=== PATIENT | male | born 1935 | race Caucasian/White ===

== ENCOUNTER 2016-10-28 12:18 | Observation (INO) | payer MEDICARE, BC ==
[2016-10-28] MEDS ORDERED: Sodium Chloride 0.9% 10 ML Syringe FLUSH PRN ×2 (12:41→17:54)
--- NOTE | 2016-10-28 14:48 | CT ---
Head wo Cont INDICATION: Syncope, evaluate shunt, rule out bleed. COMPARISON: CT 10/13/2014. FINDINGS: Mild generalized cerebral and cerebellar volume loss. Ventricular shunt via a right frontal prasad hole with tip that crosses midline and terminates in the frontal horn of the left lateral ventr icle. Focal encephalomalacia in the right frontal lobe. Slight prominence of the ventricular system i s unchanged since prior CT. No acute intracranial hemorrhage. Exam otherwise unremarkable. IMPRESSION: Stable exam. No acute findings.
--- NOTE | 2016-10-28 14:50 | CR ---
Chest 2V INDICATION: evaluate shunt, r/o PNE FINDINGS: Comparison 04/18/2015. Shunt tubing projected over the right neck, chest, and upper abdomen. No evidence for discontinuity. Mild hyperinflation. Slight blunting of the costophrenic angles. Exam otherwise negative.
--- NOTE | 2016-10-28 14:51 | CR ---
Abdomen 1V Flat INDICATION: evaluate shunt FINDINGS: Shunt tubing projected over the right side of the abdomen, coiled in the pelvis. Nonobstruc nimco bowel gas pattern. Left total hip arthroplasty. Degenerative changes lumbar spine.
[2016-10-28] MEDS ORDERED: Insulin Regular, Human 100 Units/ML 10 ML Vial SUBCUT ONE (15:59)
--- NOTE | 2016-10-28 16:25 | EDM.PDOC ---
ED HPI GENERAL MEDICAL PROBLEM - General Chief Complaint: Diabetic Complaint Stated Complaint: FALL IN BATHROOM Time Seen by Provider: 10/28/16 14:00 Source of Information: Reports: Patient, Family History Limitations: Reports: Altered Mental Status, Other (chronic dementia, unchanged per spouse) - History of Present Illness INITIAL COMMENTS - FREE TEXT/NARRATIVE: Patient had fall when getting out of shower. It was unwitnessed but heard fall and immediately went to see him. She states he was a bit slow to respond but quickly returned to his normal cognition and function. No seizure activity , no focal neurological deficit, no loss of continence, no lip/mouth bitting. Patient reports no prodrome, no headache, no palpitations, no syncope. He had been in his normal state of health, except for running blood sugars in the 300s. He is currently without complaint. Onset: Today Duration: Minutes: (<1min) Associated Symptoms: Reports: Syncope. Denies: Confusion, Chest Pain, Cough, Diaphoresis, Fever/Chills, Headaches, Loss of Appetite, Malaise, Nausea/Vomiting , Rash, Seizure, Shortness of Breath, Weakness - Related Data Allergies Allergy/AdvReac Type Severity Reaction Status Date / Time No Known Allergies Allergy Verified 10/28/16 14:32 Home Meds: Home Meds Levothyroxine Sodium 200 mcg PO DAILY 01/08/13 [History] Metoprolol Tartrate [Lopressor] 50 mg PO DAILY 01/08/13 [History] Aspirin [Silver Chewable Aspirin] 81 mg PO DAILY 05/31/14 [History] Insulin Aspart [NovoLOG] 6 unit SQ ASDIRECTED 05/31/14 [History] Insulin Glarg,Human.Rec.Analog [Lantus Solostar] 15 units SQ QAM 05/31/14 [ History] Acetaminophen [Tylenol] 2 tab PO Q4H PRN 10/13/14 [History] Acetaminophen/HYDROcodone [[place] 325-5 MG] 1 tab PO Q4H PRN 10/13/14 [History] Cholecalciferol (Vitamin D3) [Vitamin D3] 2,000 mg PO DAILY 10/13/14 [History] Simvastatin [Zocor] 20 mg PO DAILY 10/13/14 [History] Sodium Chloride 2,000 mg PO BID 10/13/14 [History] amLODIPine [Norvasc] 10 mg PO DAILY 10/13/14 [History] Past Medical History HEENT History: Reports: Impaired Vision, Other (See Below) Other HEENT History: bifocal lense Gastrointestinal History: Reports: GERD Other Musculoskeletal History: multiple dislocations since surg. latest was Other Neuro History: recent head bleed with surgical intervention and shunt Other Psychiatric History: dementia Endocrine/Metabolic History: Reports: Diabetes, Type II Other Endocrine/Metabolic History: Hx of low NA in past. Other Dermatologic History: dermatitis on legs - Infectious Disease History Infectious Disease History: Reports: Mumps - Past Surgical History GI Surgical History: Reports: Appendectomy Musculoskeletal Surgical History: Reports: Joint Replacement Social & Family History - Tobacco Use Smoking Status *Q: Current Every Day Smoker Years of Tobacco use: 60 Packs/Tins Daily: 1 Used Tobacco, but Quit: No Second Hand Smoke Exposure: Yes - Caffeine Use Caffeine Use: Reports: Coffee Other Caffeine Use: 2-3 pots a day - decaf - Alcohol Use Days Per Week of Alcohol Use: 1 Number of Drinks Per Day: 1 Total Drinks Per Week: 1 - Recreational Drug Use Recreational Drug Use: No ED ROS GENERAL - Review of Systems Review Of Systems: See Below Constitutional: Reports: No Symptoms HEENT: Reports: No Symptoms Respiratory: Reports: No Symptoms Cardiovascular: Reports: No Symptoms Endocrine: Reports: No Symptoms GI/Abdominal: Reports: No Symptoms : Reports: No Symptoms Musculoskeletal: Reports: No Symptoms Skin: Reports: No Symptoms Neurological: Reports: No Symptoms Psychiatric: Reports: No Symptoms Hematologic/Lymphatic: Reports: No Symptoms Immunologic: Reports: No Symptoms ED EXAM GENERAL NO PERIP PULSE - Physical Exam Exam: See Below Exam Limited By: No Limitations General Appearance: Alert, WD/WN, No Apparent Distress. No: Anxious, Lethargic , Obtunded Eye Exam: Bilateral Eye: EOMI, PERRL Ears: Normal External Exam, Normal Canal, Hearing Grossly Normal, Normal TMs Nose: Normal Inspection, Normal Mucosa, No Blood Throat/Mouth: Normal Inspection, Normal Lips, Normal Gums, Normal Oropharynx, Normal Voice, No Airway Compromise Head: Atraumatic, Normocephalic, Other (BILL CUTTER shunt reservoir depresses easily and refills in less than a minute. ) Neck: Normal Inspection, Supple, Non-Tender, Full Range of Motion Respiratory/Chest: No Respiratory Distress, Lungs Clear, Normal Breath Sounds, No Accessory Muscle Use, Chest Non-Tender Cardiovascular: Normal Peripheral Pulses, Regular Rate, Rhythm, No Edema, No Gallop, No JVD, No Murmur, No Rub, Systolic Murmur. No: Bradycardia, Tachycardia, Irregularly Irregular GI/Abdominal: Normal Bowel Sounds, Soft, Non-Tender, No Organomegaly, No Distention, No Abnormal Bruit, No Mass, Pelvis Stable Back Exam: Full Range of Motion. No: Decreased Range of Motion, Muscle Spasm, Paraspinal Tenderness (superficial abrasion/contusion over L scapula), Vertebral Tenderness Extremities: Normal Inspection, Normal Range of Motion (able to reach L arm behind torso, normal scapular motion), Non-Tender, No Pedal Edema, Normal Capillary Refill. No: Pedal Edema, Slow Capillary Refill, Joint Swelling, Arm Pain, Mojgan's Sign, Leg Pain, Mottled, Pallor, Redness Neurological: Alert, Oriented, CN II-XII Intact, Normal Reflexes, No Motor/ Sensory Deficits, Memory Loss Recent Events, Other (FNF, HKS, rapid alternating mvt intact, propioception intact). No: Normal Cognition, Inattentive, Confused , Disoriented, Slow to Respond Psychiatric: Normal Affect, Normal Mood Skin Exam: Warm, Dry, Intact, Normal Color, No Rash Lymphatic: No Adenopathy EKG INTERPRETATION EKG Interpretation Comments: NSR w/ 1st deg AVB, nl QTc, normal axis, poor wave in ant-sept distribution ? QS complex in V1-2, biphasic T wave laterally. Course - Vital Signs Last Recorded V/S: Last Vital Signs Temp 36.4 C 10/29/16 11:46 Pulse 56 L 10/29/16 11:46 Resp 16 10/29/16 11:46 BP 132/57 L 10/29/16 11:46 Pulse Ox 92 L 10/29/16 11:46 - Orders/Labs/Meds Labs: Laboratory Tests 10/28/16 10/28/16 10/28/16 Range/Units 13:02 13:07 13:07 WBC 10.5 (4.5-11.0) K/uL RBC 4.50 (4.30-5.90) M/uL Hgb 12.8 (12.0-15.0) g/dL Hct 38.5 L (40.0-54.0) % MCV 86 (80-98) fL MCH 28 (27-31) pg MCHC 33 (32-36) % Plt Count 253 (150-400) K/uL Neut % (Auto) 51 (36-66) % Lymph % (Auto) 10 L (24-44) % Traill % (Auto) 32 H (2-6) % Eos % (Auto) 5 H (2-4) % Baso % (Auto) 3 H (0-1) % Sodium 131 L (140-148) mmol/L Potassium 4.2 (3.6-5.2) mmol/L Chloride 98 L (100-108) mmol/L Carbon Dioxide 28 (21-32) mmol/L Anion Gap 9.2 (5.0-14.0) mmol/L BUN 20 H (7-18) mg/dL Creatinine 1.3 (0.8-1.3) mg/dL Est Cr Clr Drug Dosing TNP Estimated GFR (MDRD) 53 L (>60) Glucose 356 H (74-106) mg/dL Calcium 8.3 L (8.5-10.1) mg/dL Troponin I < 0.017 (0.000-0.056) ng/mL Urine Color Urine Appearance Urine pH (4.5-8.0) Ur Specific [place] (1.008-1.030) Urine Protein (NEGATIVE) mg/dL Urine Glucose (UA) (NEGATIVE) mg/dL Urine Ketones (NEGATIVE) mg/dL Urine Occult Blood (NEGATIVE) Urine Nitrite (NEGAITVE) Urine Bilirubin (NEGATIVE) Urine Urobilinogen (NORMAL) mg/dL Ur Leukocyte Esterase (NEGATIVE) Urine RBC (0-5) Urine WBC (0-5) Ur Epithelial Cells Amorphous Sediment Urine Bacteria Urine Mucus 10/28/16 10/28/16 Range/Units 14:58 15:07 WBC (4.5-11.0) K/uL RBC (4.30-5.90) M/uL Hgb (12.0-15.0) g/dL Hct (40.0-54.0) % MCV (80-98) fL MCH (27-31) pg MCHC (32-36) % Plt Count (150-400) K/uL Neut % (Auto) (36-66) % Lymph % (Auto) (24-44) % [place]ill % (Auto) (2-6) % Eos % (Auto) (2-4) % Baso % (Auto) (0-1) % Sodium (140-148) mmol/L Potassium (3.6-5.2) mmol/L Chloride (100-108) mmol/L Carbon Dioxide (21-32) mmol/L Anion Gap (5.0-14.0) mmol/L BUN (7-18) mg/dL Creatinine (0.8-1.3) mg/dL Est Cr Clr Drug Dosing Estimated GFR (MDRD) (>60) Glucose (74-106) mg/dL Calcium (8.5-10.1) mg/dL Troponin I < 0.017 (0.000-0.056) ng/mL Urine Color Yellow Urine Appearance Slightly cloudy Urine pH 6.0 (4.5-8.0) Ur Specific [place] 1.010 (1.008-1.030) Urine Protein Trace (NEGATIVE) mg/dL Urine Glucose (UA) 1000 H (NEGATIVE) mg/dL Urine Ketones Negative (NEGATIVE) mg/dL Urine Occult Blood Negative (NEGATIVE) Urine Nitrite Negative (NEGAITVE) Urine Bilirubin Negative (NEGATIVE) Urine Urobilinogen Normal (NORMAL) mg/dL Ur Leukocyte Esterase Negative (NEGATIVE) Urine RBC 0-5 (0-5) Urine WBC 0-5 (0-5) Ur Epithelial Cells Rare Amorphous Sediment Not seen Urine Bacteria Rare Urine Mucus Few Meds: Medications Discontinued Medications Generic Name Dose Route Start Last Admin Trade Name Freq PRN Reason Stop Dose Admin Acetaminophen 650 mg 10/28/16 17:54 Tylenol PO Q4H PRN Pain (mild 1-3) Hydrocodone Bitart/Acetaminophen 1 tab 10/28/16 17:54 [place] 325-5 Mg PO Q4H PRN Pain Amlodipine Besylate 10 mg 10/29/16 09:00 10/29/16 09:09 Norvasc PO 10 mg DAILY EMILIANA Administration Aspirin 81 mg 10/29/16 09:00 10/29/16 09:12 Aspirin PO 81 mg DAILY EMILIANA Administration Dextrose 15 gm 10/28/16 17:54 Glutose 15 PO ONETIME PRN Hypoglycemia Dextrose/Water 50 ml 10/28/16 17:54 Dextrose 50% In Water IV ONETIME PRN Hypoglycemia Docusate Sodium 100 mg 10/28/16 17:54 Colace PO BID PRN Constipation Enoxaparin Sodium 40 mg 10/28/16 17:54 10/29/16 09:10 Lovenox SUBCUT 40 mg DAILY EMILIANA Administration Lactated Ringer's 1,000 mls @ 150 mls/hr 10/28/16 16:00 10/28/16 17:16 Ringers, Lactated IV 150 mls/hr ASDIRECTED EMILIANA Administration Sodium Chloride 1,000 mls @ 125 mls/hr 10/28/16 17:54 10/29/16 06:14 Normal Saline IV 125 mls/hr ASDIRECTED EMILIANA Administration Insulin Aspart 0 unit 10/28/16 17:54 10/29/16 11:28 Novolog SUBCUT 10 units QIDACANDBED EMILIANA Administration Protocol Insulin Detemir 15 unit 10/29/16 09:00 10/29/16 09:19 Levemir SUBCUT 15 unit QAM EMILIANA Administration Insulin Human Regular 5 unit 10/28/16 15:59 10/28/16 17:05 Novolin R SUBCUT 10/28/16 16:00 Not Given ONETIME ONE Protocol Levothyroxine Sodium 50 mcg 10/29/16 07:30 10/29/16 10:04 Synthroid PO Not Given ACBREAKFAST EMILIANA Magnesium Hydroxide 30 ml 10/28/16 17:54 Milk Of Magnesia PO Q12H PRN Constipation Metoprolol Tartrate 50 mg 10/29/16 09:00 10/29/16 09:09 Lopressor PO 50 mg DAILY EMILIANA Administration Ondansetron HCl 4 mg 10/28/16 17:54 Zofran IV Q4H PRN Nausea/Vomiting Sodium Chloride 1gm 0 each 10/29/16 09:00 10/29/16 09:10 (Ptom) PO 1 each BID EMILIANA Administration Levothyroxine 200mcg 0 each 10/29/16 09:00 10/29/16 09:10 (Ptom) PO 1 each DAILY@0730 EMILIANA Administration Polyethylene Glycol 17 gm 10/28/16 17:54 Miralax PO DAILY PRN Constipation Potassium Chloride 40 meq 10/29/16 10:00 10/29/16 10:02 Klor-Con M20 PO 10/29/16 10:01 40 meq ONETIME ONE Administration Simvastatin 20 mg 10/29/16 09:00 10/29/16 09:08 Zocor PO Not Given DAILY EMILIANA Sodium Chloride 10 ml 10/28/16 12:41 10/28/16 17:15 Saline Flush FLUSH 10 ml ASDIRECTED PRN Administration Keep Vein Open Sodium Chloride 10 ml 10/28/16 17:54 Saline Flush FLUSH ASDIRECTED PRN Keep Vein Open - Re-Assessments/Exams Free Text/Narrative Re-Assessment/Exam: 10/28/16 13:55 Repeat ECG shows normalization of lateral T waves. Departure - Departure Time of Disposition: 17:54 Disposition: Refer to Observation Clinical Impression: Syncope Qualifiers: Syncope type: unspecified Qualified Code(s): R55 - Syncope and collapse - Discharge Information - Problem List Review Problem List Initiated/Reviewed/Updated: Yes - Assessment/Plan Assessment:: Confusing history, but I believe it was syncope. No sig. injuries from fall. Normalization of T waves is suspicious, but not diagnostic. No clear reason for elevated blood sugars. Will admit for observation.
[2016-10-28] MEDS: Lactated Ringers 1,000 ML IV SCH ×2 (17:15→17:16)
--- NOTE | 2016-10-28 17:20 | PCM.HP ---
H&P History of Present Illness - General Date of Service: 10/28/16 Admit Problem/Dx: Admission Diagnosis/Problem Admission Diagnosis/Problem Syncope Source of Information: Patient, Family, Provider History Limitations: Reports: Altered Mental Status (Dementia) - History of Present Illness Initial Comments - Free Text/Narative: Mr. Leyva is an 81-year-old gentleman who is admitted to observation status through the emergency department after a syncopal episode this morning at home. He does have a known history of underlying dementia, denies that he had any preceding symptoms prior to the syncopal episode. He just gotten out of the shower, heard him fall to the floor and when she went into the bathroom he was unconscious. She denies any seizure activity, because of his diabetes she gave him some orange juice. Right after she gave him orange juice checked his blood sugar and actually found that it was elevated. On evaluation in the emergency department no significant abnormalities have been identified, most source of underlying infection. CT scan of the head was unchanged from previous evaluation. He does have a known history of previous cerebral hemorrhage and is status post placement of a shunt. - Related Data Allergies/Adverse Reactions: Allergies Allergy/AdvReac Type Severity Reaction Status Date / Time No Known Allergies Allergy Verified 10/28/16 14:32 Home Medications: Home Meds Levothyroxine Sodium 250 mcg PO DAILY 01/08/13 [History] Metoprolol Tartrate [Lopressor] 50 mg PO DAILY 01/08/13 [History] Aspirin [Silver Chewable Aspirin] 81 mg PO DAILY 05/31/14 [History] Insulin Aspart [NovoLOG] 6 unit SQ ASDIRECTED 05/31/14 [History] Insulin Glarg,Human.Rec.Analog [Lantus Solostar] 15 units SQ QAM 05/31/14 [ History] Acetaminophen [Tylenol] 2 tab PO Q4H PRN 10/13/14 [History] Acetaminophen/HYDROcodone [[place] 325-5 MG] 1 tab PO Q4H PRN 10/13/14 [History] Cholecalciferol (Vitamin D3) [Vitamin D] 2,000 mg PO DAILY 10/13/14 [History] Simvastatin [Zocor] 20 mg PO DAILY 10/13/14 [History] Sodium Chloride 2,000 mg PO BID 10/13/14 [History] amLODIPine [Norvasc] 10 mg PO DAILY 10/13/14 [History] Past Medical History HEENT History: Reports: Impaired Vision, Other (See Below) Other HEENT History: bifocal lense Gastrointestinal History: Reports: GERD Other Musculoskeletal History: multiple dislocations since surg. latest was Other Neuro History: recent head bleed with surgical intervention and shunt Other Psychiatric History: dementia Endocrine/Metabolic History: Reports: Diabetes, Type II Other Endocrine/Metabolic History: Hx of low NA in past. Other Dermatologic History: dermatitis on legs - Infectious Disease History Infectious Disease History: Reports: Mumps - Past Surgical History GI Surgical History: Reports: Appendectomy Musculoskeletal Surgical History: Reports: Joint Replacement Social & Family History - Tobacco Use Smoking Status *Q: Current Every Day Smoker Years of Tobacco use: 60 Packs/Tins Daily: 1 Used Tobacco, but Quit: No Second Hand Smoke Exposure: Yes - Caffeine Use Caffeine Use: Reports: Coffee Other Caffeine Use: 2-3 pots a day - decaf - Alcohol Use Days Per Week of Alcohol Use: 1 Number of Drinks Per Day: 1 Total Drinks Per Week: 1 - Recreational Drug Use Recreational Drug Use: No H&P Review of Systems - Review of Systems: Review Of Systems: See Below General: Denies: Fever, Chills, Weakness, Decreased Appetite HEENT: Reports: No Symptoms Pulmonary: Reports: No Symptoms Cardiovascular: Reports: Syncope. Denies: Chest Pain, Palpitations, Dyspnea on Exertion, Orthopnea, PND, Edema, Lightheadedness Gastrointestinal: Reports: No Symptoms Genitourinary: Reports: No Symptoms Musculoskeletal: Reports: No Symptoms Skin: Reports: No Symptoms Psychiatric: Reports: No Symptoms Neurological: Reports: No Symptoms Hematologic/Lymphatic: Reports: No Symptoms Immunologic: Reports: No Symptoms Exam - Exam Exam: See Below - Vital Signs Vital Signs: Last Vital Signs Temp 99.5 F 10/28/16 13:00 Pulse 60 10/28/16 16:22 Resp 18 10/28/16 16:22 BP 119/60 10/28/16 16:22 Pulse Ox 98 10/28/16 16:22 Weight: 167 lb 12.348 oz - Exam Quality Assessment: DVT Prophylaxis HEENT: Conjunctiva Clear, Mucosa Moist & Glenn, Normal Nasal Septum, Posterior Pharynx Clear, Pupils Equal. No: Hearing Intact Neck: Supple, Trachea Midline, +2 Carotid Pulse wo Bruit Lungs: Clear to Auscultation, Normal Respiratory Effort Cardiovascular: Regular Rhythm, Normal S1, Normal S2, Bradycardia. No: Systolic Murmur, Diastolic Murmur GI/Abdominal Exam: Normal Bowel Sounds, Soft, Non-Tender, No Organomegaly, No Distention Back Exam: Normal Inspection, Full Range of Motion, NT Extremities: Normal Inspection, Non-Tender, No Pedal Edema Skin: Warm, Dry, Intact Neurological: Cranial Nerves Intact, Strength Equal Bilateral, Normal Speech, Normal Tone, Sensation Intact. No: Focal Deficit Neuro Extensive - Mental Status: Alert, Normal Mood/Affect, Memory Loss-Remote Events, Memory Loss-Recent Events - Patient Data Result Diagrams: 10/28/16 13:07 10/28/16 13:07 *Q Meaningful Use (ADM) - VTE *Q VTE Criteria *Q: - VTE Risk Assess *Q Each Risk Factor Represents 1 Point: None Total Score 1 Point Risk Factors: 0 Each Risk Factor Represents 2 Points: None Total Score 2 Point Risk Factors: 0 Each Risk Factor Represents 3 Points: Age 75 Years or Greater Total Score 3 Point Risk Factors: 3 Each Risk Factor Represents 5 Points: None Total Score 5 Point Risk Factors: 0 Venous Thromboembolism Risk Factor Score *Q: 3 - Stroke *Q Stroke Criteria *Q: - AMI *Q AMI Criteria *Q: Problem List Initiated/Reviewed/Updated: Yes Orders Last 24hrs: Active Orders 24 hr Category Date Time Status Blood Glucose Check, Bedside [RC] ONETIME Care 10/28/16 16:25 Active Resuscitation Status Routine Resus Stat 10/28/16 16:21 Ordered Medication Orders Lactated Ringer's (Ringers, Lactated) 1,000 mls @ 150 mls/hr IV ASDIRECTED EMILIANA Sodium Chloride (Saline Flush) 10 ml FLUSH ASDIRECTED PRN PRN Reason: Keep Vein Open Assessment/Plan Comment:: ASSESSMENT AND PLAN SYNCOPAL EPISODE-no evidence of seizure activity, patient denies any preceding symptoms prior to the event, he does have underlying dementia. Possible vagal episode related to the warm shower and having recently taken his morning medications. He does have a history of orthostasis and is on sodium supplements to expand his intravascular volume. -Observation admission for monitoring -Orthostatic vital signs -Cardiac monitoring HISTORY OF CEREBRAL HEMORRHAGE-CT scan of the head was stable showing no new hemorrhage TYPE 2 DIABETES MELLITUS-history of elevated blood sugars from baseline over the past 2 days, no evidence of infection on evaluation. -Continue usual dose of long-acting insulin -4 times a day glucometers -Moderate dose sliding scale NovoLog CHRONIC KIDNEY DISEASE STAGE III -Closely monitor urine output and renal function during hospital stay MAINTENANCE ISSUES -DVT prophylaxis; Lovenox 40 mg subcutaneous daily -GI prophylaxis; not indicated -Coughlin catheter; not indicated -Nutrition; consistent carb diet -Nicotinic dependence; nicotinic patch offered, patient refuses CODE STATUS-FULL CODE ADMISSION STATUS-this patient will be admitted to observation status, expect no more than a one night hospital stay for evaluation and management of problems as outlined above. DISPOSITION-anticipate discharge to home after the hospital stay. PRIMARY CARE PROVIDER-Dr. Park
[2016-10-28] MEDS ORDERED: Sodium Chloride 0.9% 1,000 ML IV SCH (17:54)
[2016-10-28] MEDS ORDERED: Acetaminophen/HYDROcodone 325-5 MG Tab PO PRN (17:54)
[2016-10-28] MEDS ORDERED: Polyethylene Glycol 3350 Powder 17 GM Packet PO PRN (17:54)
[2016-10-28] MEDS ORDERED: Glucose Gel 15 GM in 37.5 GM Tube PO PRN (17:54)
[2016-10-28] MEDS ORDERED: Magnesium Hydroxide 400 MG/5 ML Susp 30 ML Cup PO PRN (17:54)
[2016-10-28] MEDS ORDERED: Ondansetron 4 MG/2 ML SDV IV PRN (17:54)
[2016-10-28] MEDS ORDERED: 50% Dextrose in Water 50 ML Syringe IV PRN (17:54)
[2016-10-28] MEDS ORDERED: Docusate Sodium 100 MG Cap PO PRN (17:54)
[2016-10-28] MEDS ORDERED: Acetaminophen 325 MG Tab PO PRN (17:54)
[2016-10-28] MEDS: Enoxaparin 40 MG/0.4 ML Syringe SUBCUT SCH (21:59)
[2016-10-28] MEDS: Insulin Aspart 100 Units/ML 3 ML Pen SUBCUT SCH ×2 (21:59→22:05)
[2016-10-29] MEDS: Insulin Aspart 100 Units/ML 3 ML Pen SUBCUT SCH ×2 (07:26→11:28)
[2016-10-29] MEDS ORDERED: Levothyroxine 50 MCG Tab PO SCH (07:30)
[2016-10-29] MEDS ORDERED: Levothyroxine 100 MCG Tab PO SCH (07:30)
[2016-10-29] MEDS ORDERED: Aspirin 81 MG Tab.Chew PO SCH (09:00)
[2016-10-29] MEDS ORDERED: METOPROLOL TARTRATE 50 MG PO SCH (09:00)
[2016-10-29] MEDS ORDERED: LEVOTHYROXINE 200 MCG PO SCH (09:00)
[2016-10-29] MEDS ORDERED: SODIUM CHLORIDE 1 GM PO SCH (09:00)
[2016-10-29] MEDS ORDERED: Insulin Detemir 100 Units/ML 3 ML Pen SUBCUT SCH (09:00)
[2016-10-29] MEDS ORDERED: Simvastatin 20 MG Tab PO SCH (09:00)
[2016-10-29] MEDS ORDERED: AMLODIPINE 10 MG PO SCH (09:00)
[2016-10-29] MEDS: Enoxaparin 40 MG/0.4 ML Syringe SUBCUT SCH (09:10)
[2016-10-29] MEDS ORDERED: Potassium Chloride 20 MEQ Tab.ER PO ONE (10:00)
[2016-10-29 11:48] VITALS: BP 132/57
--- NOTE | 2016-10-29 13:47 | PCM.DCSUM1 ---
Discharge Summary - Hospital Course Brief History: Mr. Leyva is an 81-year-old gentleman who was admitted through the emergency department observation status after he experienced a syncopal episode at home on the morning of admission. - Discharge Data Discharge Date: 10/29/16 Discharge Disposition: Home, Self-Care 01 Condition: Fair - Discharge Diagnosis/Problem(s) (1) Diabetes mellitus SNOMED Code(s): 59756399 ICD Code: E11.9 - TYPE 2 DIABETES MELLITUS WITHOUT COMPLICATIONS Status: Chronic Current Visit: No (2) Dementia SNOMED Code(s): 34117380 ICD Code: F03.90 - UNSPECIFIED DEMENTIA WITHOUT BEHAVIORAL DISTURBANCE Status: Chronic Current Visit: No - Patient Summary/Data Consults: Consultations 10/28/16 17:54 PT Evaluation and Treatment [CONS] Routine Please Evaluate and Treat. PT Reason for Consult: Ambulation This query below is only for informational purposes and is not editable. Hospital Course: Mr. Leyva is an 81-year-old gentleman who experienced a syncopal episode on the morning of admission just after he gotten out of the shower. He did not recall much of the events surrounding this, reportedly gotten out of the shower and was drying his legs and feet while sitting on a chair. He experienced a syncopal episode after he stood up and had no warning or prodrome prior to the events. He was out for a minute or 2 but then came around and was mildly groggy for a while before he returned to baseline state. He was evaluated in the emergency department, CT scan of the head showed no acute changes. Rhythm was monitored in the emergency department and there were no significant dysrhythmias , initial troponin level was within normal range. He denied any associated symptoms of rapid or slow heart rate or chest pain. He was admitted to the hospital on observation status, during hospitalization cardiac monitoring showed no significant rhythm abnormalities. Orthostatic vital signs were unremarkable and he had no further symptoms of lightheadedness or syncope. It was assumed that syncopal episode a been a vagal event related to the warm shower and having stood up too quickly after bending over to dry his knees. Laboratory studies were unremarkable. Glucose levels were monitored through his hospital stay and were somewhat variable. He will be discharged home with activity as tolerated and will resume his usual diabetic diet. Follow-up appointment will be scheduled with his primary care provider Dr. Park within one week. - Patient Instructions Diet: Usual Diet as Tolerated, Diabetic Diet Activity: As Tolerated Other/Special Instructions: FU appt Dr Park w/in 1 week - Discharge Plan Home Medications: Home Meds Levothyroxine Sodium 200 mcg PO DAILY 01/08/13 [History] Metoprolol Tartrate [Lopressor] 50 mg PO DAILY 01/08/13 [History] Aspirin [Silver Chewable Aspirin] 81 mg PO DAILY 05/31/14 [History] Insulin Aspart [NovoLOG] 6 unit SQ ASDIRECTED 05/31/14 [History] Insulin Glarg,Human.Rec.Analog [Lantus Solostar] 15 units SQ QAM 05/31/14 [ History] Acetaminophen [Tylenol] 2 tab PO Q4H PRN 10/13/14 [History] Acetaminophen/HYDROcodone [Leadwood 325-5 MG] 1 tab PO Q4H PRN 10/13/14 [History] Cholecalciferol (Vitamin D3) [Vitamin D3] 2,000 mg PO DAILY 10/13/14 [History] Simvastatin [Zocor] 20 mg PO DAILY 10/13/14 [History] Sodium Chloride 2,000 mg PO BID 10/13/14 [History] amLODIPine [Norvasc] 10 mg PO DAILY 10/13/14 [History] Patient Handouts: Syncope Forms: ED Department Discharge Referrals: Kirt Park MD [Primary Care Provider] - - Patient Data Vitals - Most Recent: Last Vital Signs Temp 97.6 F 10/29/16 11:46 Pulse 56 L 10/29/16 11:46 Resp 16 10/29/16 11:46 BP 132/57 L 10/29/16 11:46 Pulse Ox 92 L 10/29/16 11:46 Orthostatic Blood Pressure [ 116/56 Standing] Orthostatic Blood Pressure [ 119/64 Sitting] Orthostatic Blood Pressure [ 136/64 Supine] Weight - Most Recent: 168 lb 0.017 oz I&O - Last 24 hours: Intake & Output 10/28/16 10/29/16 10/29/16 22:59 06:59 14:59 Intake Total 320 963 400 Output Total 200 350 850 Balance 120 613 -450 Lab Results - Last 24 hrs: Laboratory Results - last 24 hr 10/29/16 10/29/16 10/29/16 Range/Units 04:50 04:50 04:50 WBC 8.5 (4.5-11.0) K/uL RBC 4.47 (4.30-5.90) M/uL Hgb 12.7 (12.0-15.0) g/dL Hct 37.5 L (40.0-54.0) % MCV 84 (80-98) fL MCH 28 (27-31) pg MCHC 34 (32-36) % Plt Count 242 (150-400) K/uL Neut % (Auto) 47 (36-66) % Lymph % (Auto) 17 L (24-44) % Baker % (Auto) 27 H (2-6) % Eos % (Auto) 6 H (2-4) % Baso % (Auto) 3 H (0-1) % Sodium 130 L (140-148) mmol/L Potassium 3.4 L (3.6-5.2) mmol/L Chloride 96 L (100-108) mmol/L Carbon Dioxide 26 (21-32) mmol/L Anion Gap 11.4 (5.0-14.0) mmol/L BUN 15 (7-18) mg/dL Creatinine 0.9 (0.8-1.3) mg/dL Est Cr Clr Drug Dosing 68.21 mL/min Estimated GFR (MDRD) > 60 (>60) Glucose 158 H (74-106) mg/dL Calcium 8.4 L (8.5-10.1) mg/dL Magnesium 1.9 (1.8-2.4) mg/dL TSH, Ultra Sensitive 0.540 (0.358-3.740) uIU/mL Med Orders - Current: Current Medications Acetaminophen (Tylenol) 650 mg PO Q4H PRN PRN Reason: Pain (mild 1-3) Hydrocodone Bitart/Acetaminophen (Leadwood 325-5 Mg) 1 tab PO Q4H PRN PRN Reason: Pain Amlodipine Besylate (Norvasc) 10 mg PO DAILY [facility] Last Admin: 10/29/16 09:09 Dose: 10 mg Aspirin (Aspirin) 81 mg PO DAILY [facility] Last Admin: 10/29/16 09:12 Dose: 81 mg Dextrose (Glutose 15) 15 gm PO ONETIME PRN PRN Reason: Hypoglycemia Dextrose/Water (Dextrose 50% In Water) 50 ml IV ONETIME PRN PRN Reason: Hypoglycemia Docusate Sodium (Colace) 100 mg PO BID PRN PRN Reason: Constipation Enoxaparin Sodium (Lovenox) 40 mg SUBCUT DAILY [facility] Last Admin: 10/29/16 09:10 Dose: 40 mg Sodium Chloride (Normal Saline) 1,000 mls @ 125 mls/hr IV ASDIRECTED [facility] Last Admin: 10/29/16 06:14 Dose: 125 mls/hr Insulin Aspart (Novolog) 0 unit SUBCUT QIDACANDBED [facility] PRN Reason: Protocol Last Admin: 10/29/16 11:28 Dose: 10 units Insulin Detemir (Levemir) 15 unit SUBCUT QAM [facility] Last Admin: 10/29/16 09:19 Dose: 15 unit Magnesium Hydroxide (Milk Of Magnesia) 30 ml PO Q12H PRN PRN Reason: Constipation Metoprolol Tartrate (Lopressor) 50 mg PO DAILY [facility] Last Admin: 10/29/16 09:09 Dose: 50 mg Ondansetron HCl (Zofran) 4 mg IV Q4H PRN PRN Reason: Nausea/Vomiting Sodium Chloride 1gm ((Ptom)) 0 each PO BID [facility] Last Admin: 10/29/16 09:10 Dose: 1 each Levothyroxine 200mcg ((Ptom)) 0 each PO DAILY@0730 [facility] Last Admin: 10/29/16 09:10 Dose: 1 each Polyethylene Glycol (Miralax) 17 gm PO DAILY PRN PRN Reason: Constipation Simvastatin (Zocor) 20 mg PO DAILY [facility] Last Admin: 10/29/16 09:08 Dose: Not Given Sodium Chloride (Saline Flush) 10 ml FLUSH ASDIRECTED PRN PRN Reason: Keep Vein Open Discontinued Medications Lactated Ringer's (Ringers, Lactated) 1,000 mls @ 150 mls/hr IV ASDIRECTED [facility] Last Admin: 10/28/16 17:16 Dose: 150 mls/hr Insulin Human Regular (Novolin R) 5 unit SUBCUT ONETIME ONE PRN Reason: Protocol Stop: 10/28/16 16:00 Last Admin: 10/28/16 17:05 Dose: Not Given Levothyroxine Sodium (Synthroid) 50 mcg PO ACBREAKFAST [facility] Last Admin: 10/29/16 10:04 Dose: Not Given Potassium Chloride (Klor-Con M20) 40 meq PO ONETIME ONE Stop: 10/29/16 10:01 Last Admin: 10/29/16 10:02 Dose: 40 meq Sodium Chloride (Saline Flush) 10 ml FLUSH ASDIRECTED PRN PRN Reason: Keep Vein Open Last Admin: 10/28/16 17:15 Dose: 10 ml *Q Meaningful Use (DIS) - VTE *Q VTE Criteria *Q: - Stroke *Q Stroke Criteria *Q: - AMI *Q AMI Criteria *Q:
== END 2016-10-29 13:15 | disposition home or self-care (01) ==
LOC: JP.ED 12:18 → JP.MS 16:19
PROVIDERS: ADMIT Hospitalist; ATTEND Hospitalist
DX: E11.9 Type 2 diabetes mellitus without complications (principal); F03.90 Unspecified dementia, unspecified severity, without behavioral disturbance, psychotic disturbance, mood disturbance, and anxiety; K21.9 Gastro-esophageal reflux disease without esophagitis; Z79.82 Long term (current) use of aspirin; Z79.4 Long term (current) use of insulin; Z79.899 Other long term (current) drug therapy; Z90.49 Acquired absence of other specified parts of digestive tract; Z96.60 Presence of unspecified orthopedic joint implant; F17.210 Nicotine dependence, cigarettes, uncomplicated
CPT/HCPCS: 36415; 70450; 71020; 74000; 80048; 81001; 82962; 83735; 84443; 84484; 85025; 87086; 87205; 93005; 96361; 96374; 97162; 97530; 99285; A9270; J1650; J7040; J7050; J7120; 93010; 96372; 99217; 99219; 99284; G0378

== ENCOUNTER 2019-11-21 10:52 | Emergency (ER) | payer BC, MEDICARE, OTHER ==
[2019-11-21 11:11] VITALS: BP 153/70; PULSE 74
[2019-11-21] MEDS ORDERED: Sodium Chloride 0.9% 10 ML Syringe FLUSH PRN (11:20)
--- NOTE | 2019-11-21 11:26 | EDM.PDOC ---
ED HPI GENERAL MEDICAL PROBLEM - General Chief Complaint: Genitourinary Problem Stated Complaint: MEDICAL VIA NORTH Time Seen by Provider: 11/21/19 11:10 Source of Information: Reports: EMS, Family, Old Records. Denies: Patient History Limitations: Reports: Other (patient with dementia) - History of Present Illness INITIAL COMMENTS - FREE TEXT/NARRATIVE: 84 yo male brought in by EMS today from his home where he lives with his . He has known dementia. Has been markedly more incontinent of urine overnight. No fever or cough. Sleeping a lot the past few days. Has not eaten yet today and has not had any of his meds. Has been going downhill since a recent flu vaccine. Smokes a pipe. 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) (none) - Related Data Allergies Allergy/AdvReac Type Severity Reaction Status Date / Time No Known Allergies Allergy Verified 11/21/19 11:44 Home Meds: Home Meds Levothyroxine Sodium 200 mcg PO DAILY 01/08/13 [History] Aspirin [Silver Chewable Aspirin] 81 mg PO DAILY 05/31/14 [History] Insulin Aspart [NovoLOG] 6 unit SQ ASDIRECTED 05/31/14 [History] Insulin Glarg,Human.Rec.Analog [Lantus Solostar] 15 units SQ QAM 05/31/14 [History] Acetaminophen [Tylenol] 2 tab PO Q4H PRN 10/13/14 [History] Cholecalciferol (Vitamin D3) [Vitamin D3] 2,000 mg PO DAILY 10/13/14 [History] Simvastatin [Zocor] 20 mg PO DAILY 10/13/14 [History] Sodium Chloride 2,000 mg PO BID 10/13/14 [History] amLODIPine [Norvasc] 2.5 mg PO DAILY 10/13/14 [History] Tamsulosin [Tamsulosin 24 Hr] 0.4 mg PO BEDTIME #30 cap.er 11/21/19 [Rx] Past Medical History HEENT History: Reports: Impaired Vision, Other (See Below) Other HEENT History: bifocal lense Cardiovascular History: Reports: High Cholesterol Gastrointestinal History: Reports: GERD Other Musculoskeletal History: multiple dislocations since surg. latest was Neurological History: Reports: Head Trauma Other Neuro History: recent head bleed with surgical intervention and shunt Other Psychiatric History: dementia Endocrine/Metabolic History: Reports: Diabetes, Type II Other Endocrine/Metabolic History: Hx of low NA in past. Other Dermatologic History: dermatitis on legs - Infectious Disease History Infectious Disease History: Reports: Mumps - Past Surgical History GI Surgical History: Reports: Appendectomy Musculoskeletal Surgical History: Reports: Joint Replacement Social & Family History - Family History Family Medical History: Noncontributory - Caffeine Use Caffeine Use: Reports: Coffee Other Caffeine Use: 2-3 pots a day - decaf ED ROS GENERAL - Review of Systems Review Of Systems: See Below Constitutional: Reports: Malaise, Weakness. Denies: Fever, Chills HEENT: Reports: No Symptoms Respiratory: Reports: No Symptoms Cardiovascular: Reports: No Symptoms Endocrine: Reports: Fatigue GI/Abdominal: Reports: Decreased Appetite : Reports: Incontinence Musculoskeletal: Reports: No Symptoms Skin: Reports: No Symptoms Neurological: Reports: Other (has chronic dementia) ED EXAM, RENAL/ - Physical Exam Exam: See Below Exam Limited By: No Limitations General Appearance: Alert, WD/WN, No Apparent Distress Eye Exam: Bilateral Eye: Normal Inspection Ears: Normal External Exam, Normal Canal, Hearing Grossly Normal Nose: Normal Inspection, No Blood Throat/Mouth: Normal Lips, Normal Oropharynx, No Airway Compromise, Other (dry oral mucosa, brown tobacco stained tongue) Head: Atraumatic, Normocephalic Neck: Normal Inspection Respiratory/Chest: No Respiratory Distress, Lungs Clear, No Accessory Muscle Use, Decreased Breath Sounds Cardiovascular: Regular Rate, Rhythm, No Edema GI/Abdominal: Normal Bowel Sounds, Soft, Non-Tender, No Distention. No: Guarding, Rigid Back Exam: Normal Inspection. No: CVA Tenderness (R), CVA Tenderness (L) Extremities: Normal Inspection, Normal Range of Motion, Non-Tender, No Pedal Edema. No: Pedal Edema Neurological: Alert, CN II-XII Intact, No Motor/Sensory Deficits, Disoriented (not new). No: Oriented, Normal Cognition Psychiatric: Normal Affect, Normal Mood Skin Exam: Warm, Dry, Intact, Normal Color, No Rash Course - Vital Signs Text/Narrative:: bladder scan on arrival, not post-void, 250 ml Last Recorded V/S: Last Vital Signs Temp 36.8 C 11/21/19 12:00 Pulse 74 11/21/19 12:00 Resp 16 11/21/19 12:00 BP 153/70 H 11/21/19 12:00 Pulse Ox 90 L 11/21/19 12:00 - Orders/Labs/Meds Orders: Active Orders 24 hr Category Date Time Status Coughlin Catheter Insertion [Insert Urinary Catheter] [OM. Care 11/21/19 11:15 Ordered PC] Q24H Remove Urinary Catheter [Urinary Catheter Removal] [RC] Care 11/21/19 13:12 Active PER UNIT ROUTINE Urinary Catheter Assessment [RC] ASDIRECTED Care 11/21/19 11:11 Active Chest 1V Frontal [CR] Stat Exams 11/21/19 11:21 Taken NS + KCl 20mEq/L [Normal Saline with 20 mEq KCl] 1,000 Med 11/21/19 12:15 Active ml IV ASDIRECTED Sodium Chloride 0.9% [Saline Flush] Med 11/21/19 11:20 Active 10 ml FLUSH ASDIRECTED PRN Saline Lock Insert [OM.PC] Routine Oth 11/21/19 11:20 Ordered Medication Orders Potassium Chloride/Sodium Chloride (Normal Saline With 20 Meq Kcl) 1,000 mls @ 500 mls/hr IV ASDIRECTED EM[facility] Last Admin: 11/21/19 12:50 Dose: 500 mls/hr Documented by: NOVA Sodium Chloride (Saline Flush) 10 ml FLUSH ASDIRECTED PRN PRN Reason: Keep Vein Open Last Admin: 11/21/19 12:50 Dose: 10 ml Documented by: NOVA Labs: Laboratory Tests 11/21/19 11/21/19 11/21/19 Range/Units 11:28 11:28 12:04 WBC 6.8 (4.5-11.0) K/uL RBC 4.80 (4.30-5.90) M/uL Hgb 13.0 (12.0-15.0) g/dL Hct 41.0 (40.0-54.0) % MCV 85 (80-98) fL MCH 27 (27-31) pg MCHC 32 (32-36) % Plt Count 99 L (150-400) K/uL Sodium 140 (140-148) mmol/L Potassium 3.7 (3.6-5.2) mmol/L Chloride 104 (100-108) mmol/L Carbon Dioxide 25 (21-32) mmol/L Anion Gap 10.8 (5.0-14.0) mmol/L BUN 28 H D (7-18) mg/dL Creatinine 1.1 (0.8-1.3) mg/dL Est Cr Clr Drug Dosing 52.29 mL/min Estimated GFR (MDRD) > 60 (>60) Glucose 158 H (74-106) mg/dL Calcium 8.5 (8.5-10.1) mg/dL Troponin I < 0.017 (0.000-0.056) ng/mL Urine Color (YELLOW) Urine Appearance (CLEAR) Urine pH (5.0-8.0) Ur Specific Overgaard (1.008-1.030) Urine Protein (NEGATIVE) mg/dL Urine Glucose (UA) (NEGATIVE) mg/dL Urine Ketones (NEGATIVE) mg/dL Urine Occult Blood (NEGATIVE) Urine Nitrite (NEGATIVE) Urine Bilirubin (NEGATIVE) Urine Urobilinogen (0.2-1.0) EU/dL Ur Leukocyte Esterase (NEGATIVE) Urine RBC (0-5) Urine WBC (0-5) Ur Epithelial Cells Amorphous Sediment Urine Bacteria Urine Mucus SARS-CoV-2 RNA (RENNY) (NEGATIVE) 11/21/19 11/21/19 Range/Units 12:14 13:25 WBC (4.5-11.0) K/uL RBC (4.30-5.90) M/uL Hgb (12.0-15.0) g/dL Hct (40.0-54.0) % MCV (80-98) fL MCH (27-31) pg MCHC (32-36) % Plt Count (150-400) K/uL Sodium (140-148) mmol/L Potassium (3.6-5.2) mmol/L Chloride (100-108) mmol/L Carbon Dioxide (21-32) mmol/L Anion Gap (5.0-14.0) mmol/L BUN (7-18) mg/dL Creatinine (0.8-1.3) mg/dL Est Cr Clr Drug Dosing mL/min Estimated GFR (MDRD) (>60) Glucose (74-106) mg/dL Calcium (8.5-10.1) mg/dL Troponin I (0.000-0.056) ng/mL Urine Color Yellow (YELLOW) Urine Appearance Slightly cloudy A (CLEAR) Urine pH 6.5 (5.0-8.0) Ur Specific Over[place] >= 1.030 (1.008-1.030) Urine Protein 100 H (NEGATIVE) mg/dL Urine Glucose (UA) Negative (NEGATIVE) mg/dL Urine Ketones Negative (NEGATIVE) mg/dL Urine Occult Blood Moderate H (NEGATIVE) Urine Nitrite Negative (NEGATIVE) Urine Bilirubin Negative (NEGATIVE) Urine Urobilinogen 0.2 (0.2-1.0) EU/dL Ur Leukocyte Esterase Negative (NEGATIVE) Urine RBC 5-10 H (0-5) Urine WBC Not seen (0-5) Ur Epithelial Cells Not seen Amorphous Sediment Not seen Urine Bacteria Not seen Urine Mucus Not seen SARS-CoV-2 RNA (RENNY) Positive H (NEGATIVE) Meds: Medications Generic Name Dose Route Start Last Admin Trade Name Freq PRN Reason Stop Dose Admin Potassium Chloride/Sodium Chloride 1,000 mls @ 500 mls/hr 11/21/19 12:15 11/21/19 12:50 Normal Saline With 20 Meq Kcl IV 500 mls/hr ASDIRECTED EMILIANA Administration Sodium Chloride 10 ml 11/21/19 11:20 11/21/19 12:50 Saline Flush FLUSH 10 ml ASDIRECTED PRN Administration Keep Vein Open Discontinued Medications Generic Name Dose Route Start Last Admin Trade Name Freq PRN Reason Stop Dose Admin Insulin Human Regular 6 unit 11/21/19 13:06 11/21/19 13:30 Humulin R SUBCUT 11/21/19 13:07 6 unit ONETIME ONE Administration Tamsulosin HCl 0.4 mg 11/21/19 13:11 11/21/19 13:31 Flomax PO 11/21/19 13:12 0.4 mg ONETIME ONE Administration - Radiology Interpretation Free Text/Narrative:: CXR-neg Departure - Departure Time of Disposition: 14:30 Disposition: Home, Self-Care 01 Condition: Fair Clinical Impression: Mild dehydration, Urinary frequency, COVID-19 Urinary incontinence Qualifiers: Urinary Incontinence type: unspecified incontinence Qualified Code(s): R32 - Unspecified urinary incontinence - Discharge Information *PRESCRIPTION DRUG MONITORING PROGRAM REVIEWED*: Not Applicable *COPY OF PRESCRIPTION DRUG MONITORING REPORT IN PATIENT DENISE: Not Applicable Prescriptions: Tamsulosin [Tamsulosin 24 Hr] 0.4 mg PO BEDTIME #30 cap.er Referrals: Kirt Park MD [Primary Care Provider] - Forms: ED Department Discharge Additional Instructions: Take Flomax at bedtime starting tomorrow([facility]). Stay in touch with your provider regarding Russell's condition. Russell has Covid so you should wear a mask around him and wash your hands often. Limit visitors and make sure those who come are aware to take precautions. visitor services information assistant and home health will be contacting you hopefully tomorrow. Return as needed. Sepsis Event Note (ED) - Focused Exam Vital Signs: Vital Signs Temp Pulse Resp BP Pulse Ox 11/21/19 12:00 36.8 C 74 16 153/70 H 90 L 11/21/19 11:09 36.8 C 74 16 153/70 H 90 L - My Orders Last 24 Hours: My Active Orders 11/21/19 11:11 Urinary Catheter Assessment [RC] ASDIRECTED 11/21/19 11:15 Coughlin Catheter Insertion [Insert Urinary Catheter] [OM.PC] Q24H 11/21/19 11:20 Sodium Chloride 0.9% [Saline Flush] 10 ml FLUSH ASDIRECTED PRN Saline Lock Insert [OM.PC] Routine 11/21/19 11:21 Chest 1V Frontal [CR] Stat 11/21/19 12:15 NS + KCl 20mEq/L [Normal Saline with 20 mEq KCl] 1,000 ml IV ASDIRECTED 11/21/19 13:12 Remove Urinary Catheter [Urinary Catheter Removal] [RC] PER UNIT ROUTINE - Assessment/Plan Last 24 Hours: My Active Orders 11/21/19 11:11 Urinary Catheter Assessment [RC] ASDIRECTED 11/21/19 11:15 Coughlin Catheter Insertion [Insert Urinary Catheter] [OM.PC] Q24H 11/21/19 11:20 Sodium Chloride 0.9% [Saline Flush] 10 ml FLUSH ASDIRECTED PRN Saline Lock Insert [OM.PC] Routine 11/21/19 11:21 Chest 1V Frontal [CR] Stat 11/21/19 12:15 NS + KCl 20mEq/L [Normal Saline with 20 mEq KCl] 1,000 ml IV ASDIRECTED 11/21/19 13:12 Remove Urinary Catheter [Urinary Catheter Removal] [RC] PER UNIT ROUTINE
[2019-11-21] MEDS ORDERED: NS + KCl 20mEq/L 1,000 ML IV SCH (12:15)
[2019-11-21] MEDS ORDERED: Insulin Regular, Human 100 Units/ML 3 ML Vial SUBCUT ONE (13:06)
[2019-11-21] MEDS ORDERED: Tamsulosin 0.4 MG Cap.ER PO ONE (13:11)
--- NOTE | 2019-11-22 09:55 | CR ---
CHEST: Portable 11/21/2019 at 11:37 AM CLINICAL HISTORY:Fatigue, hypoxia COMPARISON:None available FINDINGS: The heart size, pulmonary vascularity and hilar structures are normal. No infiltrate effusion or pneumothorax is seen. There are atherosclerotic changes in the aorta. 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
== END 2019-11-21 15:30 | disposition home or self-care (01) ==
LOC: JP.ED 10:52
DX: U07.1 COVID-19 (principal); E86.0 Dehydration; R35.0 Frequency of micturition; R32 Unspecified urinary incontinence; F03.90 Unspecified dementia, unspecified severity, without behavioral disturbance, psychotic disturbance, mood disturbance, and anxiety; E78.00 Pure hypercholesterolemia, unspecified; E11.9 Type 2 diabetes mellitus without complications; F17.290 Nicotine dependence, other tobacco product, uncomplicated; Z79.4 Long term (current) use of insulin; Z79.82 Long term (current) use of aspirin; Z90.49 Acquired absence of other specified parts of digestive tract; Z79.899 Other long term (current) drug therapy
CPT/HCPCS: 36415; 51701; 71045; 80048; 81001; 84484; 85027; 96365; 96366; 99283; A9270; J1815; J3480; U0002

== ENCOUNTER 2019-11-21 16:34 | Inpatient (IN) | payer MEDICARE, OTHER ==
--- NOTE | 2019-11-21 16:51 | EDM.PDOC ---
ED HPI GENERAL MEDICAL PROBLEM - General Chief Complaint: General Stated Complaint: MEDICAL VIA [facility]TH Time Seen by Provider: 11/21/19 16:40 Source of Information: Reports: EMS, Family History Limitations: Reports: No Limitations - History of Present Illness INITIAL COMMENTS - FREE TEXT/NARRATIVE: 84 yo male was recently seen here in our ER for increased sleepiness and urinary incontinence. His work up revealed mild dehydration and a positive Covid test. He was hydrated with a liter of IV fluids and seemed to perk up so that the decided to take him home. We planned on a social service consult and home health consult for tomorrow. As they were getting out of the car Russell fell without injury, but she was not able to get him back up so he returned via EMS for admission. Onset: Gradual (sleepiness/weakness) Onset Date: 11/18/19 Duration: Day(s):, Getting Worse Location: Reports: Generalized Quality: Reports: Other (pain not reported) Severity: Moderate Improves with: Reports: None Worsens with: Reports: Other (? time) Context: Reports: Other (See HPI) Associated Symptoms: Reports: Confusion (chronic), Fever/Chills (for a day a few days ago), Malaise, Weakness (generalized). 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 REFINER: Reports: Other (see below) (IV fluids in ER x 1 liter) - Related Data Allergies Allergy/AdvReac Type Severity Reaction Status Date / Time No Known Allergies Allergy Verified 11/21/19 11:44 Home Meds: Home Meds Levothyroxine Sodium 200 mcg PO DAILY 01/08/13 [History] Aspirin [Silver Chewable Aspirin] 81 mg PO DAILY 05/31/14 [History] Insulin Aspart [NovoLOG] 6 unit SQ ASDIRECTED 05/31/14 [History] Insulin Glarg,Human.Rec.Analog [Lantus Solostar] 15 units SQ QAM 05/31/14 [History] Acetaminophen [Tylenol] 2 tab PO Q4H PRN 10/13/14 [History] Cholecalciferol (Vitamin D3) [Vitamin D3] 2,000 mg PO DAILY 10/13/14 [History] Simvastatin [Zocor] 20 mg PO DAILY 10/13/14 [History] Sodium Chloride 2,000 mg PO BID 10/13/14 [History] amLODIPine [Norvasc] 2.5 mg PO DAILY 10/13/14 [History] Tamsulosin [Tamsulosin 24 Hr] 0.4 mg PO BEDTIME #30 cap.er 11/21/19 [Rx] Past Medical History HEENT History: Reports: Impaired Vision, Other (See Below) Other HEENT History: bifocal lense Cardiovascular History: Reports: High Cholesterol Gastrointestinal History: Reports: GERD Other Musculoskeletal History: multiple dislocations since surg. latest was Neurological History: Reports: Head Trauma Other Neuro History: recent head bleed with surgical intervention and shunt Other Psychiatric History: dementia Endocrine/Metabolic History: Reports: Diabetes, Type II Other Endocrine/Metabolic History: Hx of low NA in past. Other Dermatologic History: dermatitis on legs - Infectious Disease History Infectious Disease History: Reports: Mumps - Past Surgical History GI Surgical History: Reports: Appendectomy Musculoskeletal Surgical History: Reports: Joint Replacement Social & Family History - Family History Family Medical History: Noncontributory - Caffeine Use Caffeine Use: Reports: Coffee Other Caffeine Use: 2-3 pots a day - decaf ED ROS GENERAL - Review of Systems Review Of Systems: See Below Constitutional: Reports: Malaise, Weakness (generalized), Fatigue HEENT: Reports: No Symptoms Respiratory: Reports: No Symptoms Cardiovascular: Reports: No Symptoms Endocrine: Reports: No Symptoms GI/Abdominal: Reports: No Symptoms : Reports: No Symptoms Musculoskeletal: Reports: No Symptoms Skin: Reports: No Symptoms Neurological: Reports: Confusion (chronic) ED EXAM, GENERAL - Physical Exam Exam: See Below Exam Limited By: No Limitations General Appearance: Alert, No Apparent Distress, Thin Eye Exam: Bilateral Eye: Normal Inspection Ears: Normal External Exam, Normal Canal, Hearing Grossly Normal Ear Exam: Bilateral Ear: Auricle Normal, Canal Normal Nose: Normal Inspection, No Blood Throat/Mouth: Normal Inspection, Normal Lips, Normal Oropharynx, Normal Voice, No Airway Compromise Head: Atraumatic, Normocephalic Neck: Normal Inspection Respiratory/Chest: No Respiratory Distress, Lungs Clear, Normal Breath Sounds, No Accessory Muscle Use Cardiovascular: Regular Rate, Rhythm, No Edema GI/Abdominal: Normal Bowel Sounds, Soft, Non-Tender, No Distention Back Exam: Normal Inspection Extremities: Normal Inspection, Normal Range of Motion, Non-Tender, No Pedal Edema Neurological: Alert, Oriented, CN II-XII Intact, Normal Cognition, No Motor/Sensory Deficits Psychiatric: Normal Affect, Normal Mood Skin Exam: Warm, Dry, Intact, Normal Color, No Rash Departure - Departure Time of Disposition: 17:00 Disposition: Refer to Observation Condition: Fair Clinical Impression: Fall in elderly patient, Weakness, COVID-19 - Discharge Information *PRESCRIPTION DRUG MONITORING PROGRAM REVIEWED*: Not Applicable *COPY OF PRESCRIPTION DRUG MONITORING REPORT IN PATIENT DENISE: Not Applicable Referrals: Kirt Park MD [Primary Care Provider] - Forms: ED Department Discharge
[2019-11-21] MEDS ORDERED: Lidocaine 2% Jelly 10 ML Urojet ONE (17:35)
--- NOTE | 2019-11-21 17:43 | PCM.HP.2 ---
H&P History of Present Illness - General Date of Service: 11/21/19 Admit Problem/Dx: Admission Diagnosis/Problem Admission Diagnosis/Problem Weakness Source of Information: Patient, Family History Limitations: Reports: Altered Mental Status (dementia) - History of Present Illness Initial Comments - Free Text/Narative: CC: weakness HPI: Russell presents to the emergency room for the second time today with weakness. He has Alzheimer's dementia so some of the history is difficult to gather. Additional history was gathered from his Kezia as well as emergency room personnel. I did also review the records from his visit earlier today. Per report he has been going downhill over the past 4 to 5 days. He had a high fever several days ago with diaphoresis and shaking chills. No temperature was measured. He has not been eating or drinking very well he has become progressively weak to the point that he is been having difficulty getting around. He has had a couple of falls over the past few days. He has been more confused than usual and has not been sleeping well. He has not reported any shortness of breath or chest pain to his . He has not reported any abdominal pain and has not vomited. She said that he has been taking his medications as prescribed. He did get a flu shot on Friday of last week, 5 days ago and his feels like that is when things have been going downhill. She felt ill about the same time with myalgias and fatigue but is starting to feel better now. She thought maybe it was the flu shot that was giving both of them trouble. When he was in the emergency room earlier he did test positive for COVID19. He was a little dehydrated and got 1 L of fluid. He seemed to perk up after that so his was hoping to take him home. When they got home he fell in the garage and was not able to get up so they had to call an ambulance. He is going to be admitted for management of COVID19. - Related Data Allergies/Adverse Reactions: Allergies Allergy/AdvReac Type Severity Reaction Status Date / Time No Known Allergies Allergy Verified 11/21/19 11:44 Home Medications: Home Meds Levothyroxine Sodium 200 mcg PO DAILY 01/08/13 [History] Aspirin [Silver Chewable Aspirin] 81 mg PO DAILY 05/31/14 [History] Insulin Aspart [NovoLOG] 6 unit SQ ASDIRECTED 05/31/14 [History] Insulin Glarg,Human.Rec.Analog [Lantus Solostar] 15 units SQ QAM 05/31/14 [History] Acetaminophen [Tylenol] 2 tab PO Q4H PRN 10/13/14 [History] Cholecalciferol (Vitamin D3) [Vitamin D3] 2,000 mg PO DAILY 10/13/14 [History] Simvastatin [Zocor] 20 mg PO DAILY 10/13/14 [History] Sodium Chloride 2,000 mg PO BID 10/13/14 [History] amLODIPine [Norvasc] 2.5 mg PO DAILY 10/13/14 [History] Tamsulosin [Tamsulosin 24 Hr] 0.4 mg PO BEDTIME #30 cap.er 11/21/19 [Rx] Past Medical History HEENT History: Reports: Impaired Vision, Other (See Below) Other HEENT History: bifocal lense Cardiovascular History: Reports: High Cholesterol Other Respiratory History: covid-19 possitive 11/21/19 Gastrointestinal History: Reports: GERD Other Musculoskeletal History: multiple dislocations since surg. latest was Neurological History: Reports: Head Trauma Other Neuro History: recent head bleed with surgical intervention and shunt Other Psychiatric History: dementia Endocrine/Metabolic History: Reports: Diabetes, Type II Other Endocrine/Metabolic History: Hx of low NA in past. Other Dermatologic History: dermatitis on legs - Infectious Disease History Infectious Disease History: Reports: Mumps - Past Surgical History GI Surgical History: Reports: Appendectomy Musculoskeletal Surgical History: Reports: Joint Replacement Social & Family History - Family History Family Medical History: Noncontributory - Tobacco Use Smoking Status *Q: Never Smoker - Caffeine Use Caffeine Use: Reports: Coffee Other Caffeine Use: 2-3 pots a day - decaf - Alcohol Use Alcohol Use History: No H&P Review of Systems - Review of Systems: Review Of Systems: Unable To Obtain Reason Not Obtained: Limited by Alzheimer's dementia Exam - Exam Exam: See Below - Vital Signs Vital Signs: Last Vital Signs Temp 37.3 C 11/21/19 17:16 Pulse 82 11/21/19 17:16 Resp 14 11/21/19 17:16 BP 142/67 H 11/21/19 17:16 Pulse Ox 92 L 11/21/19 17:16 Weight: 81.647 kg - Exam Quality Assessment: No: Supplemental Oxygen General: Alert, Cooperative, Lethargic. No: Oriented, Mild Distress HEENT: Conjunctiva Clear. No: Mucosa Moist & [place] (dry), Scleral Icterus Neck: Supple, Trachea Midline Lungs: Clear to Auscultation (Rare left lung base), Normal Respiratory Effort Cardiovascular: Regular Rate, Regular Rhythm GI/Abdominal Exam: Soft, No Distention Extremities: No Pedal Edema, Other (No evidence for injury to either shoulder, either elbow, either hip or either knee). No: Increased Warmth Skin: Warm, Dry. No: Rash Neuro Extensive - Mental Status: Alert, Disorientation to Place, Disorientation to Time, Nl Response to Commands. No: Oriented x3 Neuro Extensive - Motor, Sensory, Reflexes: No: Dysarthria, Abnormal Motor, Tremor Psychiatric: Alert. No: Agitated - Patient Data Lab Results Last 24 hrs: Creatinine 1.1 with a GFR greater than 60 Potassium 3.7 Platelet count 99,000 COVID19 positive Imaging Impressions Last 24 hrs: Chest x-ray-I did personally review the image from his visit earlier today-lungs are clear with no mass, infiltrate or effusion. Heart size is normal. Sepsis Event Note - Evaluation Sepsis Screening Result: No Definite Risk - Focused Exam Vital Signs: Vital Signs Temp Pulse Resp BP Pulse Ox 11/21/19 17:16 37.3 C 82 14 142/67 H 92 L *Q Meaningful Use (ADM) - VTE Risk Assess *Q Each Risk Factor Represents 1 Point: Serious lung disease including pneumonia Total Score 1 Point Risk Factors: 1 Each Risk Factor Represents 2 Points: None Total Score 2 Point Risk Factors: 0 Each Risk Factor Represents 3 Points: Age 75 Years or Greater Total Score 3 Point Risk Factors: 3 Each Risk Factor Represents 5 Points: None Total Score 5 Point Risk Factors: 0 Venous Thromboembolism Risk Factor Score *Q: 4 - Problem List (1) COVID-19 SNOMED Code(s): 158437525 ICD Code: U07.1 - COVID-19 Status: Acute Current Visit: Yes (2) Fall in elderly patient SNOMED Code(s): 776170509 ICD Code: R29.6 - REPEATED FALLS Status: Acute Current Visit: Yes (3) Weakness SNOMED Code(s): 30764305 ICD Code: R53.1 - WEAKNESS Status: Acute Current Visit: Yes (4) 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 SNOMED Code(s): 861935479 ICD Code: G30.1 - ALZHEIMER'S DISEASE WITH LATE ONSET; F02.81 - DEMENTIA IN OTH DISEASES CLASSD ELSWHR W BEHAVIORAL DISTURB Status: Chronic Current Visit: Yes (5) Type 2 diabetes mellitus SNOMED Code(s): 78777854 ICD Code: E11.9 - TYPE 2 DIABETES MELLITUS WITHOUT COMPLICATIONS Status: Chronic Current Visit: Yes Qualifiers: Diabetes mellitus penitentiary insulin use: without cmo & president use Diabetes mellitus complication status: with other specified complication Qualified Code(s): E11.69 - Type 2 diabetes mellitus with other specified complication Problem List Initiated/Reviewed/Updated: Yes Orders Last 24hrs: Active Orders 24 hr Category Date Time Status Patient Status Manage Transfer [TRANSFER] Routine ADT 11/21/19 17:32 Ordered Resuscitation Status Routine Resus Stat 11/21/19 17:34 Ordered Assessment/Plan Comment:: ASSESSMENT AND PLAN - COVID19 infection-onset of symptoms occurred about November 15. Manifestations including weakness, borderline hypoxia, increased confusion and dysuria. Failed a trial at home and will be admitted for further management. Laboratory studies fairly unremarkable but he does have evidence for moderate dehydration on examination. Oxygenation is less than 92% on room air. Mild cough. Too weak to be safe for outpatient management. -Dexamethasone 6 mg every 24 hours x5 days -Isolation precautions -Gentle fluids x1 more liter then saline lock -Increase activity as tolerated -Symptomatic management of cough Alzheimer's dementia with behavioral disturbance-more agitated over the past few days. Not sleeping. Stable at this time. -Melatonin at bedtime Type 2 diabetes mellitus, [id number] acceptable earlier in the day. Not eating well. -Hold long-acting insulin -Check sugars 4 times a day and use medium dose sliding scale until appetite improves Maintenance issues - - DVT prophylaxis -enoxaparin 40 mg daily - GI prophylaxis-not indicated - Nutrition -consistent carbohydrates - Coughlin catheter -placed in the emergency room because of frequent urination leading to unsafe environment for the patient and for strict intake and output monitoring CODE STATUS -DO NOT RESUSCITATE but intubation is okay Admission justification -this patient will be admitted for inpatient services and is medically appropriate meeting medical necessity for inpatient admission as outlined in my documentation. I reasonably expect the patient will require inpatient services that span a period time over 2 midnights. I reasonably expect this patient to be discharged or transferred within 96 hours after admission to the Critical [facility]. Disposition -I would anticipate discharge home after the hospital stay Primary care physician -Dr. Xavier Hagan M.D. - Mortality Measure Prognosis:: Good
[2019-11-21] MEDS ORDERED: LORazepam 2 MG/ML SDV IVPUSH PRN (17:49)
[2019-11-21] MEDS ORDERED: guaiFENesin/Dextromethorphan 100-10 MG/5 ML Soln 10 ML Cup PO PRN (17:49)
[2019-11-21] MEDS ORDERED: Ondansetron 4 MG/2 ML SDV IV PRN (17:49)
[2019-11-21] MEDS ORDERED: Sodium Chloride 0.9% 1,000 ML IV SCH (17:49)
[2019-11-21] MEDS ORDERED: Magnesium Hydroxide 400 MG/5 ML Susp 30 ML Cup PO PRN (17:49)
[2019-11-21] MEDS ORDERED: Ondansetron 4 MG Tab.DIS PO PRN (17:49)
[2019-11-21] MEDS ORDERED: Benzonatate 100 MG Cap PO PRN (17:49)
[2019-11-21] MEDS ORDERED: Enoxaparin 40 MG/0.4 ML Syringe SUBCUT SCH ×2 (18:00→21:00)
[2019-11-21] MEDS ORDERED: Dexamethasone 4 MG Tab PO SCH (18:00)
[2019-11-21] MEDS ORDERED: Lidocaine 2% Jelly 10 ML Urojet MUCMEM ONE (18:09)
[2019-11-21] MEDS: Acetaminophen 500 MG Tab PO SCH (20:47)
[2019-11-21] MEDS: Tamsulosin 0.4 MG Cap.ER PO SCH (20:48)
[2019-11-21] MEDS: Dexamethasone 4 MG Tab PO SCH (20:48)
[2019-11-21] MEDS: Melatonin 3 MG Tab PO SCH (20:50)
[2019-11-21] MEDS: Insulin Lispro 100 Unit/ML 3 ML KwikPen SUBCUT SCH (21:52)
[2019-11-22] MEDS: Insulin Lispro 100 Unit/ML 3 ML KwikPen SUBCUT SCH ×4 (07:37→21:03)
[2019-11-22] MEDS: amLODIPine 5 MG Tab PO SCH (09:31)
[2019-11-22] MEDS: Aspirin 81 MG Tab.EC PO SCH (09:32)
[2019-11-22] MEDS: Levothyroxine 100 MCG Tab PO SCH (09:32)
[2019-11-22] MEDS: Acetaminophen 500 MG Tab PO SCH ×3 (09:32→21:35)
--- NOTE | 2019-11-22 12:32 | PCM.PN ---
- General Info Date of Service: 11/22/19 Admission Dx/Problem (Free Text): 1. Confusion 2. Acute cystitis due to unknown organism 3. Acute pneumonia due to COVID-19 4. Underlying dementia (alzheimer's type) Subjective Update: Mr. Leyva was admitted on 21 November 2019 with acute confusion in the setting of chronic underlying Alzheimer's Dementia. The patient, in the ED was found to have have had UTI as well as COVID-19. The patient was initially discharged to home but returned after he was unable to even get out of the car. He has since been stable here with no oxygen requirement, no dyspnea or increased WOB. He continues to be somewhat confused. Functional Status: Reports: Pain Controlled, Tolerating Diet, Ambulating, Urinating - Review of Systems General: Reports: Weakness, Fatigue HEENT: Reports: No Symptoms Pulmonary: Reports: No Symptoms Cardiovascular: Reports: No Symptoms Gastrointestinal: Reports: No Symptoms Genitourinary: Reports: Frequency, Urgency Musculoskeletal: Reports: No Symptoms - Patient Data Vitals - Most Recent: Last Vital Signs Temp 96.4 F L 11/22/19 11:00 Pulse 58 L 11/22/19 11:00 Resp 16 11/22/19 11:00 BP 115/44 L 11/22/19 11:00 Pulse Ox 95 11/22/19 11:00 Weight - Most Recent: 166 lb I&O - Last 24 Hours: Intake & Output 11/21/19 11/22/19 11/22/19 22:59 06:59 14:59 Intake Total 200 Output Total 750 Balance -550 Lab Results Last 24 Hours: Laboratory Results - last 24 hr 11/21/19 11/22/19 11/22/19 Range/Units 21:00 04:10 04:10 WBC 4.3 L (4.5-11.0) K/uL RBC 4.51 (4.30-5.90) M/uL Hgb 12.3 (12.0-15.0) g/dL Hct 38.8 L (40.0-54.0) % MCV 86 (80-98) fL MCH 27 (27-31) pg MCHC 32 (32-36) % Plt Count 87 L (150-400) K/uL D-Dimer, Quantitative 987 H (0.0-400.0) ng/mL Sodium (140-148) mmol/L Potassium (3.6-5.2) mmol/L Chloride (100-108) mmol/L Carbon Dioxide (21-32) mmol/L Anion Gap (5.0-14.0) mmol/L BUN (7-18) mg/dL Creatinine (0.8-1.3) mg/dL Est Cr Clr Drug Dosing mL/min Estimated GFR (MDRD) (>60) Glucose (74-106) mg/dL POC Glucose 239 H (74-106) MG/DL Calcium (8.5-10.1) mg/dL Lactate Dehydrogenase (85-227) U/L C-Reactive Protein (0.0-0.3) mg/dL 11/22/19 11/22/19 11/22/19 Range/Units 04:10 07:30 11:30 WBC (4.5-11.0) K/uL RBC (4.30-5.90) M/uL Hgb (12.0-15.0) g/dL Hct (40.0-54.0) % MCV (80-98) fL MCH (27-31) pg MCHC (32-36) % Plt Count (150-400) K/uL D-Dimer, Quantitative (0.0-400.0) ng/mL Sodium 137 L (140-148) mmol/L Potassium 4.4 (3.6-5.2) mmol/L Chloride 106 (100-108) mmol/L Carbon Dioxide 23 (21-32) mmol/L Anion Gap 12.4 (5.0-14.0) mmol/L BUN 28 H (7-18) mg/dL Creatinine 1.3 (0.8-1.3) mg/dL Est Cr Clr Drug Dosing 44.24 mL/min Estimated GFR (MDRD) 52 L (>60) Glucose 250 H (74-106) mg/dL POC Glucose 314 H 474 H (74-106) MG/DL Calcium 7.8 L (8.5-10.1) mg/dL Lactate Dehydrogenase 241 H (85-227) U/L C-Reactive Protein 2.80 H (0.0-0.3) mg/dL Med Orders - Current: Current Medications Acetaminophen (Tylenol Extra Strength) 1,000 mg PO TID EMILIANA Last Admin: 11/22/19 09:32 Dose: 1,000 mg Documented by: Amlodipine Besylate (Norvasc) 2.5 mg PO DAILY [facility] Last Admin: 11/22/19 09:31 Dose: 2.5 mg Documented by: Aspirin (Halfprin) 81 mg PO DAILY [facility] Last Admin: 11/22/19 09:32 Dose: 81 mg Documented by: Benzonatate (Tessalon Perles) 100 mg PO TID PRN PRN Reason: Cough Dexamethasone (Dexamethasone) 6 mg PO Q24H [facility] Last Admin: 11/21/19 20:48 Dose: 6 mg Documented by: Guaifenesin/Dextromethorphan (Robitussin Dm) 10 ml PO Q4H PRN PRN Reason: Cough Haloperidol Lactate (Haldol) 2 mg IVPUSH Q4H PRN PRN Reason: Agitation Insulin Glargine (Lantus Solostar) 10 units SUBCUT BEDTIME [facility] Insulin Human Lispro (Humalog) 0 unit SUBCUT QIDACANDBED [facility]; Protocol Last Admin: 11/22/19 11:35 Dose: 10 units Documented by: Levothyroxine Sodium (Synthroid) 200 mcg PO DAILY [facility] Last Admin: 11/22/19 09:32 Dose: 200 mcg Documented by: Lorazepam (Ativan) 0.5 mg IVPUSH Q4H PRN PRN Reason: Nausea/Vomiting Magnesium Hydroxide (Milk Of Magnesia) 30 ml PO Q12H PRN PRN Reason: Constipation Melatonin (Melatonin) 9 mg PO BEDTIME [facility] Last Admin: 11/21/19 20:50 Dose: 9 mg Documented by: Ondansetron HCl (Zofran) 4 mg IV Q6H PRN PRN Reason: Nausea/Vomiting Ondansetron HCl (Zofran Odt) 4 mg PO Q6H PRN PRN Reason: Nausea able to take PO Senna/Docusate Sodium (Senna Plus) 1 tab PO BID PRN PRN Reason: Constipation Tamsulosin HCl (Flomax) 0.4 mg PO BEDTIME [facility] Last Admin: 11/21/19 20:48 Dose: 0.4 mg Documented by: Discontinued Medications Dexamethasone (Dexamethasone) 6 mg PO Q24H [facility] Last Admin: 11/21/19 21:47 Dose: Not Given Documented by: Enoxaparin Sodium (Lovenox) 40 mg SUBCUT Q24H [facility] Last Admin: 11/21/19 21:47 Dose: Not Given Documented by: Enoxaparin Sodium (Lovenox) 40 mg SUBCUT Q24H [facility] Last Admin: 11/21/19 20:51 Dose: 40 mg Documented by: Sodium Chloride (Normal Saline) 1,000 mls @ 125 mls/hr IV ASDIRECTED [facility] Stop: 11/22/19 01:50 Last Admin: 11/21/19 19:55 Dose: 125 mls/hr Documented by: Lidocaine HCl (Xylocaine 2% Jelly) Confirm Administered Dose 10 ml .ROUTE .STK- MED ONE Stop: 11/21/19 17:36 Last Admin: 11/21/19 18:57 Dose: Not Given Documented by: Lidocaine HCl (Xylocaine 2% Jelly) 10 ml [facility] ONETIME ONE Stop: 11/21/19 18:10 Last Admin: 11/21/19 18:56 Dose: 10 ml Documented by: - Exam General: Alert, Cooperative Lungs: Clear to Auscultation, Normal Respiratory Effort Cardiovascular: Regular Rate, Regular Rhythm GI/Abdominal Exam: Normal Bowel Sounds Sepsis Event Note - Evaluation Sepsis Screening Result: No Definite Risk - Focused Exam Vital Signs: Vital Signs Temp Pulse Resp BP BP Pulse Ox 11/22/19 11:00 96.4 F L 58 L 16 115/44 L 95 11/22/19 09:31 126/56 L 11/22/19 07:42 95.9 F L 99 16 126/56 L 97 11/22/19 04:00 99.6 F 70 18 110/58 L 94 L 11/22/19 00:44 99.6 F 66 18 107/51 L 92 L - Problem List Review Problem List Initiated/Reviewed/Updated: Yes - My Orders Last 24 Hours: My Active Orders 11/22/19 12:19 Antiembolic Devices [RC] .Routine SCD [Sequential Compression Device] [OM.PC] Routine 11/22/19 21:00 Insulin Glarg,Human.Rec.Analog [LantUS Solostar] 10 units SUBCUT BEDTIME - Plan Plan:: ASSESSMENT AND PLAN - COVID19 infection-onset of symptoms occurred about November 15. Manifestations including weakness, borderline hypoxia, increased confusion and dysuria. Failed a trial at home and will be admitted for further management. Laboratory studies fairly unremarkable but he does have evidence for moderate dehydration on examination. Oxygenation is less than 92% on room air. Mild cough. Too weak to be safe for outpatient management. I do not think that the patient requires remdesivir at this time but will monitor the situation. -Dexamethasone 6 mg every 24 hours x5 days -Isolation precautions -Gentle fluids x1 more liter then saline lock -Increase activity as tolerated -Symptomatic management of cough Alzheimer's dementia with behavioral disturbance-more agitated over the past few days. Not sleeping. Stable at this time. -Melatonin at bedtime Type 2 diabetes mellitus, [id number] acceptable earlier in the day. Not eating well. -He has resumed regular PO intake. - Resume [facility] [employer] lantus 15 units SQ daily -Check sugars 4 times a day and use medium dose sliding scale until appetite improves Maintenance issues - - DVT prophylaxis -enoxaparin 40 mg daily - GI prophylaxis-not indicated - Nutrition -consistent carbohydrates - Coughlin catheter -placed in the emergency room because of frequent urination leading to unsafe environment for the patient and for strict intake and output monitoring CODE STATUS -DO NOT RESUSCITATE but intubation is okay Disposition -I would anticipate discharge home after the hospital stay Primary care physician -Dr. Xavier Mendes M.D. 22 November 2019
[2019-11-22] MEDS: Insulin Glargine,Human Rec. Analog 100 Units/ML 3 ML Pen SUBCUT SCH ×2 (13:39→21:21)
[2019-11-22] MEDS ORDERED: Insulin Glargine,Human Rec. Analog 100 Units/ML 3 ML Pen SUBCUT SCH (21:00)
[2019-11-22] MEDS ORDERED: Insulin Lispro 100 Units/ML 3 ML Vial SUBCUT ONE ×2 (21:05→23:30)
[2019-11-22] MEDS: Melatonin 3 MG Tab PO SCH (21:20)
[2019-11-22] MEDS: Tamsulosin 0.4 MG Cap.ER PO SCH (21:20)
[2019-11-22] MEDS: Dexamethasone 4 MG Tab PO SCH (21:20)
[2019-11-22] MEDS: Haloperidol Lactate 5 MG/ML SDV IVPUSH PRN (22:48)
[2019-11-23] MEDS: Haloperidol Lactate 5 MG/ML SDV IVPUSH PRN ×3 (02:49→23:58)
[2019-11-23] MEDS: Insulin Lispro 100 Unit/ML 3 ML KwikPen SUBCUT SCH ×4 (07:55→20:49)
[2019-11-23] MEDS: Acetaminophen 500 MG Tab PO SCH ×3 (08:10→20:48)
[2019-11-23] MEDS: Levothyroxine 100 MCG Tab PO SCH (08:12)
[2019-11-23] MEDS: amLODIPine 5 MG Tab PO SCH (08:12)
[2019-11-23] MEDS: Aspirin 81 MG Tab.EC PO SCH (08:12)
--- NOTE | 2019-11-23 13:46 | PCM.PN ---
- General Info Date of Service: 11/23/19 Admission Dx/Problem (Free Text): 1. Confusion 2. Prior h/o dementia, Alzheimer's type 3. COVID 19 Infection Subjective Update: Patient stable this morning, but still quite confused. The patient continues to have some weakness. Notes he is hungry. Still not requiring oxygen or additional supportive management of his active COVID status. Did have some issues with impulsivity overnight and had a very restless evening. Did approve removal of santos catheter per RN request. - Review of Systems General: Reports: No Symptoms HEENT: Reports: No Symptoms Pulmonary: Reports: No Symptoms Cardiovascular: Reports: No Symptoms Gastrointestinal: Reports: No Symptoms Neurological: Reports: Confusion Psychiatric: Reports: Confusion, Mood Lability, Agitation - Patient Data Vitals - Most Recent: Last Vital Signs Temp 97 F 11/23/19 10:42 Pulse 60 11/23/19 10:42 Resp 20 11/23/19 10:42 BP 125/55 L 11/23/19 10:42 Pulse Ox 94 L 11/23/19 10:42 Weight - Most Recent: 166 lb I&O - Last 24 Hours: Intake & Output 11/22/19 11/23/19 11/23/19 22:59 06:59 14:59 Intake Total 5289 083 0090 Output Total 1850 650 Balance -190 -290 1000 Lab Results Last 24 Hours: Laboratory Results - last 24 hr 11/22/19 11/22/19 11/22/19 Range/Units 16:48 21:00 23:05 WBC (4.5-11.0) K/uL RBC (4.30-5.90) M/uL Hgb (12.0-15.0) g/dL Hct (40.0-54.0) % MCV (80-98) fL MCH (27-31) pg MCHC (32-36) % Plt Count (150-400) K/uL Neut % (Auto) (36-66) % Lymph % (Auto) (24-44) % [place] % (Auto) (2-6) % Eos % (Auto) (2-4) % Baso % (Auto) (0-1) % D-Dimer, Quantitative (0.0-400.0) ng/mL Sodium (140-148) mmol/L Potassium (3.6-5.2) mmol/L Chloride (100-108) mmol/L Carbon Dioxide (21-32) mmol/L Anion Gap (5.0-14.0) mmol/L BUN (7-18) mg/dL Creatinine (0.8-1.3) mg/dL Est Cr Clr Drug Dosing mL/min Estimated GFR (MDRD) (>60) Glucose (74-106) mg/dL POC Glucose 457 H > 500 H* > 500 H* (74-106) MG/DL Calcium (8.5-10.1) mg/dL Total Bilirubin (0.2-1.0) mg/dL AST (15-37) U/L ALT (12-78) U/L Alkaline Phosphatase (46-116) U/L C-Reactive Protein (0.0-0.3) mg/dL Total Protein (6.4-8.2) g/dL Albumin (3.4-5.0) g/dL Globulin (2.3-3.5) g/dL Albumin/Globulin Ratio (1.2-2.2) Procalcitonin ng/mL 11/23/19 11/23/19 11/23/19 Range/Units 01:10 07:55 08:44 WBC 6.8 (4.5-11.0) K/uL RBC 4.64 (4.30-5.90) M/uL Hgb 12.7 (12.0-15.0) g/dL Hct 38.7 L (40.0-54.0) % MCV 83 (80-98) fL MCH 27 (27-31) pg MCHC 33 (32-36) % Plt Count 84 L (150-400) K/uL Neut % (Auto) 67 H (36-66) % Lymph % (Auto) 12 L (24-44) % [place] % (Auto) 21 H (2-6) % Eos % (Auto) 0 L (2-4) % Baso % (Auto) 0 (0-1) % D-Dimer, Quantitative (0.0-400.0) ng/mL Sodium (140-148) mmol/L Potassium (3.6-5.2) mmol/L Chloride (100-108) mmol/L Carbon Dioxide (21-32) mmol/L Anion Gap (5.0-14.0) mmol/L BUN (7-18) mg/dL Creatinine (0.8-1.3) mg/dL Est Cr Clr Drug Dosing mL/min Estimated GFR (MDRD) (>60) Glucose (74-106) mg/dL POC Glucose 429 H 148 H (74-106) MG/DL Calcium (8.5-10.1) mg/dL Total Bilirubin (0.2-1.0) mg/dL AST (15-37) U/L ALT (12-78) U/L Alkaline Phosphatase (46-116) U/L C-Reactive Protein (0.0-0.3) mg/dL Total Protein (6.4-8.2) g/dL Albumin (3.4-5.0) g/dL Globulin (2.3-3.5) g/dL Albumin/Globulin Ratio (1.2-2.2) Procalcitonin ng/mL 11/23/19 11/23/19 11/23/19 Range/Units 08:44 08:44 08:44 WBC (4.5-11.0) K/uL RBC (4.30-5.90) M/uL Hgb (12.0-15.0) g/dL Hct (40.0-54.0) % MCV (80-98) fL MCH (27-31) pg MCHC (32-36) % Plt Count (150-400) K/uL Neut % (Auto) (36-66) % Lymph % (Auto) (24-44) % [place] % (Auto) (2-6) % Eos % (Auto) (2-4) % Baso % (Auto) (0-1) % D-Dimer, Quantitative 848 H (0.0-400.0) ng/mL Sodium 136 L (140-148) mmol/L Potassium 3.9 (3.6-5.2) mmol/L Chloride 102 (100-108) mmol/L Carbon Dioxide 24 (21-32) mmol/L Anion Gap 13.9 (5.0-14.0) mmol/L BUN 42 H (7-18) mg/dL Creatinine 1.2 (0.8-1.3) mg/dL Est Cr Clr Drug Dosing 47.93 mL/min Estimated GFR (MDRD) 58 L (>60) Glucose 194 H (74-106) mg/dL POC Glucose (74-106) MG/DL Calcium 8.3 L (8.5-10.1) mg/dL Total Bilirubin 0.3 (0.2-1.0) mg/dL AST 36 D (15-37) U/L ALT 33 (12-78) U/L Alkaline Phosphatase 49 (46-116) U/L C-Reactive Protein 2.21 H (0.0-0.3) mg/dL Total Protein 7.0 (6.4-8.2) g/dL Albumin 3.1 L (3.4-5.0) g/dL Globulin 3.9 H (2.3-3.5) g/dL Albumin/Globulin Ratio 0.8 L (1.2-2.2) Procalcitonin 0.59 ng/mL 11/23/19 Range/Units 11:38 WBC (4.5-11.0) K/uL RBC (4.30-5.90) M/uL Hgb (12.0-15.0) g/dL Hct (40.0-54.0) % MCV (80-98) fL MCH (27-31) pg MCHC (32-36) % Plt Count (150-400) K/uL Neut % (Auto) (36-66) % Lymph % (Auto) (24-44) % [place] % (Auto) (2-6) % Eos % (Auto) (2-4) % Baso % (Auto) (0-1) % D-Dimer, Quantitative (0.0-400.0) ng/mL Sodium (140-148) mmol/L Potassium (3.6-5.2) mmol/L Chloride (100-108) mmol/L Carbon Dioxide (21-32) mmol/L Anion Gap (5.0-14.0) mmol/L BUN (7-18) mg/dL Creatinine (0.8-1.3) mg/dL Est Cr Clr Drug Dosing mL/min Estimated GFR (MDRD) (>60) Glucose (74-106) mg/dL POC Glucose 256 H (74-106) MG/DL Calcium (8.5-10.1) mg/dL Total Bilirubin (0.2-1.0) mg/dL AST (15-37) U/L ALT (12-78) U/L Alkaline Phosphatase (46-116) U/L C-Reactive Protein (0.0-0.3) mg/dL Total Protein (6.4-8.2) g/dL Albumin (3.4-5.0) g/dL Globulin (2.3-3.5) g/dL Albumin/Globulin Ratio (1.2-2.2) Procalcitonin ng/mL Med Orders - Current: Current Medications Acetaminophen (Tylenol Extra Strength) 1,000 mg PO TID [facility] Last Admin: 11/23/19 08:10 Dose: 1,000 mg Documented by: Amlodipine Besylate (Norvasc) 2.5 mg PO DAILY [facility] Last Admin: 11/23/19 08:12 Dose: 2.5 mg Documented by: Aspirin (Halfprin) 81 mg PO DAILY [facility] Last Admin: 11/23/19 08:12 Dose: 81 mg Documented by: Benzonatate (Tessalon Perles) 100 mg PO TID PRN PRN Reason: Cough Dexamethasone (Dexamethasone) 6 mg PO Q24H [facility] Last Admin: 11/22/19 21:20 Dose: 6 mg Documented by: Guaifenesin/Dextromethorphan (Robitussin Dm) 10 ml PO Q4H PRN PRN Reason: Cough Haloperidol Lactate (Haldol) 2 mg IVPUSH Q4H PRN PRN Reason: Agitation Last Admin: 11/23/19 08:02 Dose: 2 mg Documented by: Insulin Glargine (Lantus Solostar) 15 units SUBCUT BEDTIME [facility] Last Admin: 11/22/19 21:21 Dose: 15 units Documented by: Insulin Human Lispro (Humalog) 0 unit SUBCUT QIDACANDBED [facility]; Protocol Last Admin: 11/23/19 11:50 Dose: 6 units Documented by: Levothyroxine Sodium (Synthroid) 200 mcg PO DAILY [facility] Last Admin: 11/23/19 08:12 Dose: 200 mcg Documented by: Lorazepam (Ativan) 0.5 mg IVPUSH Q4H PRN PRN Reason: Nausea/Vomiting Magnesium Hydroxide (Milk Of Magnesia) 30 ml PO Q12H PRN PRN Reason: Constipation Melatonin (Melatonin) 9 mg PO BEDTIME [facility] Last Admin: 11/22/19 21:20 Dose: 9 mg Documented by: Ondansetron HCl (Zofran) 4 mg IV Q6H PRN PRN Reason: Nausea/Vomiting Ondansetron HCl (Zofran Odt) 4 mg PO Q6H PRN PRN Reason: Nausea able to take PO Senna/Docusate Sodium (Senna Plus) 1 tab PO BID PRN PRN Reason: Constipation Tamsulosin HCl (Flomax) 0.4 mg PO BEDTIME [facility] Last Admin: 11/22/19 21:20 Dose: 0.4 mg Documented by: Discontinued Medications Dexamethasone (Dexamethasone) 6 mg PO Q24H [facility] Last Admin: 11/21/19 21:47 Dose: Not Given Documented by: Enoxaparin Sodium (Lovenox) 40 mg SUBCUT Q24H [facility] Last Admin: 11/21/19 21:47 Dose: Not Given Documented by: Enoxaparin Sodium (Lovenox) 40 mg SUBCUT Q24H [facility] Last Admin: 11/21/19 20:51 Dose: 40 mg Documented by: Sodium Chloride (Normal Saline) 1,000 mls @ 125 mls/hr IV ASDIRECTED [facility] Stop: 11/22/19 01:50 Last Admin: 11/21/19 19:55 Dose: 125 mls/hr Documented by: Insulin Glargine (Lantus Solostar) 10 units SUBCUT BEDTIME [facility] Insulin Human Lispro (Humalog) 20 unit SUBCUT ONETIME ONE Stop: 11/22/19 21:06 Last Admin: 11/22/19 21:22 Dose: 20 units Documented by: Insulin Human Lispro (Humalog) 15 unit SUBCUT ONETIME ONE Stop: 11/22/19 23:31 Last Admin: 11/23/19 00:04 Dose: 15 units Documented by: Lidocaine HCl (Xylocaine 2% Jelly) Confirm Administered Dose 10 ml .ROUTE .STK- MED ONE Stop: 11/21/19 17:36 Last Admin: 11/21/19 18:57 Dose: Not Given Documented by: Lidocaine HCl (Xylocaine 2% Jelly) 10 ml MUCMEM ONETIME ONE Stop: 11/21/19 18:10 Last Admin: 11/21/19 18:56 Dose: 10 ml Documented by: - Exam Quality Assessment: No: Supplemental Oxygen General: Alert, Cooperative, No Acute Distress Lungs: Clear to Auscultation, Normal Respiratory Effort Cardiovascular: Regular Rate, Regular Rhythm GI/Abdominal Exam: Normal Bowel Sounds Psy/Mental Status: Alert, Normal Affect, Normal Mood Sepsis Event Note - Evaluation Sepsis Screening Result: No Definite Risk - Focused Exam Vital Signs: Vital Signs Temp Pulse Pulse Resp BP BP Pulse Ox 11/23/19 10:42 97 F 60 20 125/55 L 94 L 11/23/19 08:12 123/60 11/23/19 07:35 96.3 F L 61 20 123/60 90 L 11/23/19 03:25 96.9 F 66 18 116/58 L 95 - Problem List Review Problem List Initiated/Reviewed/Updated: Yes - Plan Plan:: ASSESSMENT AND PLAN - COVID19 infection-onset of symptoms occurred about November 15. Manifestations including weakness, borderline hypoxia, increased confusion and dysuria. Failed a trial at home and will be admitted for further management. Laboratory studies fairly unremarkable but he does have evidence for moderate dehydration on examination. Oxygenation is less than 92% on room air. Mild cough. Too weak to be safe for outpatient management. I do not think that the patient requires remdesivir at this time but will monitor the situation. As of 22 November, the patient has not yet required remdesivir or additional supportive management. he is now a full week into his illness. Awaiting placement -Dexamethasone 6 mg every 24 hours x5 days -Isolation precautions -Gentle fluids x1 more liter then saline lock -Increase activity as tolerated -Symptomatic management of cough Alzheimer's dementia with behavioral disturbance-more agitated over the past few days. Not sleeping. Stable at this time. -Melatonin at bedtime (will continue) - I think that given the patient's impulsivity on the overnight, I will add seroquel 25 mg po qhs in lieu of prn haloperidol. We can keep the prn as needed. Type 2 diabetes mellitus, [id number] acceptable earlier in the day. Not eating well. -He has resumed regular PO intake. 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 Xavier Mendes M.D. 22 November 2019
[2019-11-23] MEDS ORDERED: 50% Dextrose in Water 50 ML Syringe IVPUSH PRN ×3 (16:40→20:27)
[2019-11-23] MEDS ORDERED: Glucagon,Human Recombinant 1 MG Vial IM PRN ×3 (16:40→20:27)
[2019-11-23] MEDS ORDERED: Insulin Lispro 100 Unit/ML 3 ML KwikPen SUBCUT ONE (17:00)
[2019-11-23] MEDS ORDERED: Insulin Lispro 100 Units/ML 3 ML Vial SUBCUT STA (18:15)
[2019-11-23] MEDS ORDERED: Insulin Lispro 100 Units/ML 3 ML Vial SUBCUT ONE (20:27)
[2019-11-23] MEDS: Melatonin 3 MG Tab PO SCH (20:46)
[2019-11-23] MEDS: Dexamethasone 4 MG Tab PO SCH (20:48)
[2019-11-23] MEDS: Tamsulosin 0.4 MG Cap.ER PO SCH (20:48)
[2019-11-23] MEDS: Insulin Glargine,Human Rec. Analog 100 Units/ML 3 ML Pen SUBCUT SCH (20:50)
[2019-11-23] MEDS ORDERED: QUEtiapine 25 MG Tab PO SCH (21:00)
[2019-11-23] MEDS ORDERED: Ibuprofen 600 MG Tab PO PRN (23:08)
[2019-11-24] MEDS ORDERED: Sodium Chloride 0.9% 500 ML IV ONE (03:48)
[2019-11-24] MEDS: Insulin Lispro 100 Unit/ML 3 ML KwikPen SUBCUT SCH ×4 (07:36→21:05)
[2019-11-24] MEDS: Levothyroxine 100 MCG Tab PO SCH (09:46)
[2019-11-24] MEDS: amLODIPine 5 MG Tab PO SCH (09:46)
[2019-11-24] MEDS: Acetaminophen 500 MG Tab PO SCH ×3 (09:48→21:07)
[2019-11-24] MEDS: Aspirin 81 MG Tab.EC PO SCH (09:48)
--- NOTE | 2019-11-24 10:55 | PCM.PN ---
- General Info Date of Service: 11/24/19 Admission Dx/Problem (Free Text): COVID 19 Confusion Subjective Update: Patient is still having some issues with impulsivity on the overnights. 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 Clinically still is quite stable with respect to the COVID diagnosis - not needing oxygen and his exam is improved. Awaiting placement. Functional Status: Reports: Pain Controlled - Review of Systems General: Reports: No Symptoms HEENT: Reports: No Symptoms Pulmonary: Reports: No Symptoms Cardiovascular: Reports: No Symptoms Neurological: Reports: No Symptoms Psychiatric: Reports: Confusion - Patient Data Vitals - Most Recent: Last Vital Signs Temp 96.4 F L 11/24/19 07:30 Pulse 62 11/24/19 07:30 Resp 20 11/24/19 07:30 BP 119/57 L 11/24/19 09:46 Pulse Ox 97 11/24/19 07:30 Weight - Most Recent: 166 lb I&O - Last 24 Hours: Intake & Output 11/23/19 11/24/19 11/24/19 22:59 06:59 14:59 Intake Total 700 680 Output Total 525 Balance 175 680 Lab Results Last 24 Hours: Laboratory Results - last 24 hr 11/23/19 11/23/19 11/23/19 Range/Units 11:38 16:30 18:00 WBC (4.5-11.0) K/uL RBC (4.30-5.90) M/uL Hgb (12.0-15.0) g/dL Hct (40.0-54.0) % MCV (80-98) fL MCH (27-31) pg MCHC (32-36) % Plt Count (150-400) K/uL Neut % (Auto) (36-66) % Lymph % (Auto) (24-44) % [place] % (Auto) (2-6) % Eos % (Auto) (2-4) % Baso % (Auto) (0-1) % Sodium (140-148) mmol/L Potassium (3.6-5.2) mmol/L Chloride (100-108) mmol/L Carbon Dioxide (21-32) mmol/L Anion Gap (5.0-14.0) mmol/L BUN (7-18) mg/dL Creatinine (0.8-1.3) mg/dL Est Cr Clr Drug Dosing mL/min Estimated GFR (MDRD) (>60) Glucose (74-106) mg/dL POC Glucose 256 H > 500 H* > 500 H* (74-106) MG/DL Calcium (8.5-10.1) mg/dL Total Bilirubin (0.2-1.0) mg/dL AST (15-37) U/L ALT (12-78) U/L Alkaline Phosphatase (46-116) U/L Total Protein (6.4-8.2) g/dL Albumin (3.4-5.0) g/dL Globulin (2.3-3.5) g/dL Albumin/Globulin Ratio (1.2-2.2) 11/23/19 11/23/19 11/24/19 Range/Units 19:30 23:00 04:04 WBC 9.1 (4.5-11.0) K/uL RBC 4.76 (4.30-5.90) M/uL Hgb 12.9 (12.0-15.0) g/dL Hct 39.3 L (40.0-54.0) % MCV 83 (80-98) fL MCH 27 (27-31) pg MCHC 33 (32-36) % Plt Count 85 L (150-400) K/uL Neut % (Auto) 82 H (36-66) % Lymph % (Auto) 4 L (24-44) % [place] % (Auto) 14 H (2-6) % Eos % (Auto) 0 L (2-4) % Baso % (Auto) 0 (0-1) % Sodium (140-148) mmol/L Potassium (3.6-5.2) mmol/L Chloride (100-108) mmol/L Carbon Dioxide (21-32) mmol/L Anion Gap (5.0-14.0) mmol/L BUN (7-18) mg/dL Creatinine (0.8-1.3) mg/dL Est Cr Clr Drug Dosing mL/min Estimated GFR (MDRD) (>60) Glucose (74-106) mg/dL POC Glucose > 500 H* 255 H (74-106) MG/DL Calcium (8.5-10.1) mg/dL Total Bilirubin (0.2-1.0) mg/dL AST (15-37) U/L ALT (12-78) U/L Alkaline Phosphatase (46-116) U/L Total Protein (6.4-8.2) g/dL Albumin (3.4-5.0) g/dL Globulin (2.3-3.5) g/dL Albumin/Globulin Ratio (1.2-2.2) 11/24/19 11/24/19 11/24/19 Range/Units 04:04 04:04 04:50 WBC (4.5-11.0) K/uL RBC (4.30-5.90) M/uL Hgb (12.0-15.0) g/dL Hct (40.0-54.0) % MCV (80-98) fL MCH (27-31) pg MCHC (32-36) % Plt Count (150-400) K/uL Neut % (Auto) (36-66) % Lymph % (Auto) (24-44) % [place] % (Auto) (2-6) % Eos % (Auto) (2-4) % Baso % (Auto) (0-1) % Sodium 138 L (140-148) mmol/L Potassium 4.1 (3.6-5.2) mmol/L Chloride 104 (100-108) mmol/L Carbon Dioxide 24 (21-32) mmol/L Anion Gap 14.1 H (5.0-14.0) mmol/L BUN 49 H (7-18) mg/dL Creatinine 1.7 H (0.8-1.3) mg/dL Est Cr Clr Drug Dosing 33.83 mL/min Estimated GFR (MDRD) 38 L (>60) Glucose 49 L* (74-106) mg/dL POC Glucose 51 L 65 L (74-106) MG/DL Calcium 8.6 (8.5-10.1) mg/dL Total Bilirubin 0.3 (0.2-1.0) mg/dL AST 38 H (15-37) U/L ALT 35 (12-78) U/L Alkaline Phosphatase 45 L (46-116) U/L Total Protein 7.4 (6.4-8.2) g/dL Albumin 3.3 L (3.4-5.0) g/dL Globulin 4.1 H (2.3-3.5) g/dL Albumin/Globulin Ratio 0.8 L (1.2-2.2) 11/24/19 11/24/19 Range/Units 05:48 07:30 WBC (4.5-11.0) K/uL RBC (4.30-5.90) M/uL Hgb (12.0-15.0) g/dL Hct (40.0-54.0) % MCV (80-98) fL MCH (27-31) pg MCHC (32-36) % Plt Count (150-400) K/uL Neut % (Auto) (36-66) % Lymph % (Auto) (24-44) % [place] % (Auto) (2-6) % Eos % (Auto) (2-4) % Baso % (Auto) (0-1) % Sodium (140-148) mmol/L Potassium (3.6-5.2) mmol/L Chloride (100-108) mmol/L Carbon Dioxide (21-32) mmol/L Anion Gap (5.0-14.0) mmol/L BUN (7-18) mg/dL Creatinine (0.8-1.3) mg/dL Est Cr Clr Drug Dosing mL/min Estimated GFR (MDRD) (>60) Glucose (74-106) mg/dL POC Glucose 186 H 185 H (74-106) MG/DL Calcium (8.5-10.1) mg/dL Total Bilirubin (0.2-1.0) mg/dL AST (15-37) U/L ALT (12-78) U/L Alkaline Phosphatase (46-116) U/L Total Protein (6.4-8.2) g/dL Albumin (3.4-5.0) g/dL Globulin (2.3-3.5) g/dL Albumin/Globulin Ratio (1.2-2.2) Med Orders - Current: Current Medications Acetaminophen (Tylenol Extra Strength) 1,000 mg PO TID [facility] Last Admin: 11/24/19 09:48 Dose: 1,000 mg Documented by: Amlodipine Besylate (Norvasc) 2.5 mg PO DAILY [facility] Last Admin: 11/24/19 09:46 Dose: 2.5 mg Documented by: Aspirin (Halfprin) 81 mg PO DAILY [facility] Last Admin: 11/24/19 09:48 Dose: 81 mg Documented by: Benzonatate (Tessalon Perles) 100 mg PO TID PRN PRN Reason: Cough Dexamethasone (Dexamethasone) 6 mg PO Q24H [facility] Last Admin: 11/23/19 20:48 Dose: 6 mg Documented by: Dextrose/Water (Dextrose 50% In Water) 50 ml IVPUSH ASDIRECTED PRN PRN Reason: Hypoglycemia Last Admin: 11/24/19 05:05 Dose: 50 ml Documented by: Glucagon (Glucagen) 1 mg IM ASDIRECTED PRN PRN Reason: Hypoglycemia Guaifenesin/Dextromethorphan (Robitussin Dm) 10 ml PO Q4H PRN PRN Reason: Cough Haloperidol Lactate (Haldol) 2 mg IVPUSH Q4H PRN PRN Reason: Agitation Last Admin: 11/23/19 23:58 Dose: 2 mg Documented by: Ibuprofen (Motrin) 600 mg PO Q6H PRN PRN Reason: Fever Last Admin: 11/23/19 23:20 Dose: 600 mg Documented by: Insulin Glargine (Lantus Solostar) 15 units SUBCUT BEDTIME [facility] Last Admin: 11/23/19 20:50 Dose: 15 units Documented by: Insulin Human Lispro (Humalog) 0 unit SUBCUT QIDACANDBED [facility]; Protocol Last Admin: 11/24/19 07:36 Dose: 2 units Documented by: Levothyroxine Sodium (Synthroid) 200 mcg PO DAILY [facility] Last Admin: 11/24/19 09:46 Dose: 200 mcg Documented by: Lorazepam (Ativan) 0.5 mg IVPUSH Q4H PRN PRN Reason: Nausea/Vomiting Magnesium Hydroxide (Milk Of Magnesia) 30 ml PO Q12H PRN PRN Reason: Constipation Melatonin (Melatonin) 9 mg PO BEDTIME [facility] Last Admin: 11/23/19 20:46 Dose: 9 mg Documented by: Ondansetron HCl (Zofran) 4 mg IV Q6H PRN PRN Reason: Nausea/Vomiting Ondansetron HCl (Zofran Odt) 4 mg PO Q6H PRN PRN Reason: Nausea able to take PO Quetiapine Fumarate (Seroquel) 25 mg PO BEDTIME [facility] Last Admin: 11/23/19 20:46 Dose: 25 mg Documented by: Senna/Docusate Sodium (Senna Plus) 1 tab PO BID PRN PRN Reason: Constipation Tamsulosin HCl (Flomax) 0.4 mg PO BEDTIME [facility] Last Admin: 11/23/19 20:48 Dose: 0.4 mg Documented by: Discontinued Medications Dexamethasone (Dexamethasone) 6 mg PO Q24H [facility] Last Admin: 11/21/19 21:47 Dose: Not Given Documented by: Enoxaparin Sodium (Lovenox) 40 mg SUBCUT Q24H [facility] Last Admin: 11/21/19 21:47 Dose: Not Given Documented by: Enoxaparin Sodium (Lovenox) 40 mg SUBCUT Q24H [facility] Last Admin: 11/21/19 20:51 Dose: 40 mg Documented by: Sodium Chloride (Normal Saline) 1,000 mls @ 125 mls/hr IV ASDIRECTED [facility] Stop: 11/22/19 01:50 Last Admin: 11/21/19 19:55 Dose: 125 mls/hr Documented by: Sodium Chloride (Normal Saline) 500 mls @ 250 mls/hr IV .BOLUS ONE Stop: 11/24/19 05:47 Last Admin: 11/24/19 04:05 Dose: 250 mls/hr Documented by: Insulin Glargine (Lantus Solostar) 10 units SUBCUT BEDTIME [facility] Insulin Human Lispro (Humalog) 20 unit SUBCUT ONETIME ONE Stop: 11/22/19 21:06 Last Admin: 11/22/19 21:22 Dose: 20 units Documented by: Insulin Human Lispro (Humalog) 15 unit SUBCUT ONETIME ONE Stop: 11/22/19 23:31 Last Admin: 11/23/19 00:04 Dose: 15 units Documented by: Insulin Human Lispro (Humalog) 15 unit SUBCUT ONETIME ONE Stop: 11/23/19 17:01 Last Admin: 11/23/19 16:58 Dose: 15 units Documented by: Insulin Human Lispro (Humalog) 15 unit SUBCUT STAT [facility] Stop: 11/23/19 18:16 Last Admin: 11/23/19 18:28 Dose: 15 unit Documented by: Insulin Human Lispro (Humalog) 20 unit SUBCUT ONETIME ONE Stop: 11/23/19 20:28 Last Admin: 11/23/19 22:52 Dose: Not Given Documented by: Lidocaine HCl (Xylocaine 2% Jelly) Confirm Administered Dose 10 ml .ROUTE .STK- MED ONE Stop: 11/21/19 17:36 Last Admin: 11/21/19 18:57 Dose: Not Given Documented by: Lidocaine HCl (Xylocaine 2% Jelly) 10 ml MUCMEM ONETIME ONE Stop: 11/21/19 18:10 Last Admin: 11/21/19 18:56 Dose: 10 ml Documented by: - Exam Quality Assessment: DVT Prophylaxis. No: Supplemental Oxygen General: Alert, Oriented, Cooperative, No Acute Distress Lungs: Clear to Auscultation, Normal Respiratory Effort Cardiovascular: Regular Rate, Regular Rhythm, No Murmurs GI/Abdominal Exam: Normal Bowel Sounds, Soft, Non-Tender, No Organomegaly, No Distention, No Abnormal Bruit, No Mass Psy/Mental Status: Other (Somewhat confused this AM - slow to answer questions) Sepsis Event Note - Evaluation Sepsis Screening Result: No Definite Risk - Focused Exam Vital Signs: Vital Signs Temp Temp Pulse Resp BP BP Pulse Ox 11/24/19 09:46 119/57 L 11/24/19 07:30 96.4 F L 62 20 104/49 L 97 11/24/19 04:19 97.2 F 64 16 89/52 L 92 L 11/24/19 03:47 64 71/43 L 91 L 11/24/19 03:34 14 93/57 L 11/24/19 03:01 97.9 F 72 16 72/38 L 92 L 11/24/19 00:20 99.5 F 11/23/19 23:20 101.7 F H - Problem List Review Problem List Initiated/Reviewed/Updated: Yes - My Orders Last 24 Hours: My Active Orders 11/23/19 16:40 Dextrose 50% in Water 50 ml IVPUSH ASDIRECTED PRN Glucagon,Human Recombinant [GlucaGen] 1 mg IM ASDIRECTED PRN 11/23/19 21:00 QUEtiapine [SEROqueL] 25 mg PO BEDTIME - Plan Plan:: ASSESSMENT AND PLAN - COVID19 infection-onset of symptoms occurred about November 15. Manifestations including weakness, borderline hypoxia, increased confusion and dysuria. Failed a trial at home and will be admitted for further management. Laboratory studies fairly unremarkable but he does have evidence for moderate dehydration on examination. Oxygenation is less than 92% on room air. Mild cough. Too weak to be safe for outpatient management. I do not think that the patient requires remdesivir at this time but will monitor the situation. As of 22 November, the patient has not yet required remdesivir or additional supportive management. he is now a full week into his illness. Awaiting placement -Dexamethasone 6 mg every 24 hours x5 days -Isolation precautions -Gentle fluids x1 more liter then saline lock -Increase activity as tolerated -Symptomatic management of cough Alzheimer's dementia with behavioral disturbance-more agitated over the past few days. Not sleeping. Stable at this time. -Melatonin at bedtime (will continue) - I think that given the patient's impulsivity on the overnight, I will add seroquel 25 mg po qhs in lieu of prn haloperidol. We can keep the prn as needed. Type 2 diabetes mellitus, [id number] acceptable earlier in the day. PO intake increasing. Patient had an episode of low sugars overnight. -He has resumed regular PO intake. - Resume [employer] lantus 15 units SQ daily -Check sugars 4 times a day and use medium dose sliding scale until appetite improves Maintenance issues - - DVT prophylaxis -enoxaparin 40 mg daily - GI prophylaxis-not indicated - Nutrition -consistent carbohydrates - Coughlin catheter -placed in the emergency room because of frequent urination leading to unsafe environment for the patient and for strict intake and output monitoring CODE STATUS -DO NOT RESUSCITATE but intubation is okay Disposition -Awaiting placement Primary care physician -Dr. Xavier Mendes M.D. 24 November 2019
[2019-11-24] MEDS ORDERED: OLANZapine 5 MG Tab PO PRN (13:07)
[2019-11-24] MEDS: Melatonin 3 MG Tab PO SCH (21:06)
[2019-11-24] MEDS: Tamsulosin 0.4 MG Cap.ER PO SCH (21:06)
[2019-11-24] MEDS: Dexamethasone 4 MG Tab PO SCH (21:06)
[2019-11-24] MEDS: Insulin Glargine,Human Rec. Analog 100 Units/ML 3 ML Pen SUBCUT SCH (21:06)
[2019-11-24] MEDS: QUEtiapine 25 MG Tab PO SCH (21:07)
[2019-11-25] MEDS: Insulin Lispro 100 Unit/ML 3 ML KwikPen SUBCUT SCH ×4 (07:45→21:09)
[2019-11-25] MEDS: Levothyroxine 100 MCG Tab PO SCH (10:28)
[2019-11-25] MEDS: amLODIPine 5 MG Tab PO SCH (10:28)
[2019-11-25] MEDS: Acetaminophen 500 MG Tab PO SCH ×3 (10:28→21:02)
[2019-11-25] MEDS: Aspirin 81 MG Tab.EC PO SCH (10:28)
--- NOTE | 2019-11-25 10:53 | PCM.PN ---
- General Info Date of Service: 11/25/19 Admission Dx/Problem (Free Text): Patient did better with impulsivity overnight, but continues to struggle with sleep. Clinically remains stable Did not rquire IV haloperidol overnight - Review of Systems General: Reports: No Symptoms HEENT: Reports: No Symptoms Pulmonary: Reports: No Symptoms Cardiovascular: Reports: No Symptoms Gastrointestinal: Reports: No Symptoms Psychiatric: Reports: Confusion - Patient Data Vitals - Most Recent: Last Vital Signs Temp 99.2 F 11/25/19 10:24 Pulse 84 11/25/19 10:24 Resp 18 11/25/19 10:24 BP 105/51 L 11/25/19 10:28 Pulse Ox 90 L 11/25/19 10:24 Weight - Most Recent: 166 lb I&O - Last 24 Hours: Intake & Output 11/24/19 11/25/19 11/25/19 22:59 06:59 14:59 Intake Total 1600 240 Output Total 400 100 Balance 1200 140 Lab Results Last 24 Hours: Laboratory Results - last 24 hr 11/24/19 11/24/19 11/24/19 Range/Units 11:30 16:30 19:45 WBC (4.5-11.0) K/uL RBC (4.30-5.90) M/uL Hgb (12.0-15.0) g/dL Hct (40.0-54.0) % MCV (80-98) fL MCH (27-31) pg MCHC (32-36) % Plt Count (150-400) K/uL Neut % (Auto) (36-66) % Lymph % (Auto) (24-44) % [place] % (Auto) (2-6) % Eos % (Auto) (2-4) % Baso % (Auto) (0-1) % D-Dimer, Quantitative (0.0-400.0) ng/mL Sodium (140-148) mmol/L Potassium (3.6-5.2) mmol/L Chloride (100-108) mmol/L Carbon Dioxide (21-32) mmol/L Anion Gap (5.0-14.0) mmol/L BUN (7-18) mg/dL Creatinine (0.8-1.3) mg/dL Est Cr Clr Drug Dosing mL/min Estimated GFR (MDRD) (>60) Glucose (74-106) mg/dL POC Glucose 265 H 289 H (74-106) MG/DL Calcium (8.5-10.1) mg/dL Ferritin (8-388) ng/ml Total Bilirubin (0.2-1.0) mg/dL AST (15-37) U/L ALT (12-78) U/L Alkaline Phosphatase (46-116) U/L Total Protein (6.4-8.2) g/dL Albumin (3.4-5.0) g/dL Globulin (2.3-3.5) g/dL Albumin/Globulin Ratio (1.2-2.2) Urine Color Yellow (YELLOW) Urine Appearance Clear (CLEAR) Urine pH 6.0 (5.0-8.0) Ur Specific Mcrae 1.020 (1.008-1.030) Urine Protein 100 H (NEGATIVE) mg/dL Urine Glucose (UA) 500 H (NEGATIVE) mg/dL Urine Ketones Negative (NEGATIVE) mg/dL Urine Occult Blood Small H (NEGATIVE) Urine Nitrite Negative (NEGATIVE) Urine Bilirubin Negative (NEGATIVE) Urine Urobilinogen 0.2 (0.2-1.0) EU/dL Ur Leukocyte Esterase Negative (NEGATIVE) Urine RBC 0-5 (0-5) Urine WBC Not seen (0-5) Ur Epithelial Cells Rare Amorphous Sediment Many Urine Bacteria Not seen Urine Mucus Not seen 11/24/19 11/25/19 11/25/19 Range/Units 21:00 07:30 08:46 WBC 6.0 (4.5-11.0) K/uL RBC 5.01 (4.30-5.90) M/uL Hgb 13.5 (12.0-15.0) g/dL Hct 42.1 (40.0-54.0) % MCV 84 (80-98) fL MCH 27 (27-31) pg MCHC 32 (32-36) % Plt Count 93 L (150-400) K/uL Neut % (Auto) 67 H (36-66) % Lymph % (Auto) 12 L (24-44) % [place] % (Auto) 21 H (2-6) % Eos % (Auto) 0 L (2-4) % Baso % (Auto) 0 (0-1) % D-Dimer, Quantitative (0.0-400.0) ng/mL Sodium (140-148) mmol/L Potassium (3.6-5.2) mmol/L Chloride (100-108) mmol/L Carbon Dioxide (21-32) mmol/L Anion Gap (5.0-14.0) mmol/L BUN (7-18) mg/dL Creatinine (0.8-1.3) mg/dL Est Cr Clr Drug Dosing mL/min Estimated GFR (MDRD) (>60) Glucose (74-106) mg/dL POC Glucose 353 H 309 H (74-106) MG/DL Calcium (8.5-10.1) mg/dL Ferritin (8-388) ng/ml Total Bilirubin (0.2-1.0) mg/dL AST (15-37) U/L ALT (12-78) U/L Alkaline Phosphatase (46-116) U/L Total Protein (6.4-8.2) g/dL Albumin (3.4-5.0) g/dL Globulin (2.3-3.5) g/dL Albumin/Globulin Ratio (1.2-2.2) Urine Color (YELLOW) Urine Appearance (CLEAR) Urine pH (5.0-8.0) Ur Specific Mcrae (1.008-1.030) Urine Protein (NEGATIVE) mg/dL Urine Glucose (UA) (NEGATIVE) mg/dL Urine Ketones (NEGATIVE) mg/dL Urine Occult Blood (NEGATIVE) Urine Nitrite (NEGATIVE) Urine Bilirubin (NEGATIVE) Urine Urobilinogen (0.2-1.0) EU/dL Ur Leukocyte Esterase (NEGATIVE) Urine RBC (0-5) Urine WBC (0-5) Ur Epithelial Cells Amorphous Sediment Urine Bacteria Urine Mucus 11/25/19 11/25/19 Range/Units 08:46 08:46 WBC (4.5-11.0) K/uL RBC (4.30-5.90) M/uL Hgb (12.0-15.0) g/dL Hct (40.0-54.0) % MCV (80-98) fL MCH (27-31) pg MCHC (32-36) % Plt Count (150-400) K/uL Neut % (Auto) (36-66) % Lymph % (Auto) (24-44) % [place] % (Auto) (2-6) % Eos % (Auto) (2-4) % Baso % (Auto) (0-1) % D-Dimer, Quantitative 860 H (0.0-400.0) ng/mL Sodium 133 L (140-148) mmol/L Potassium 4.1 (3.6-5.2) mmol/L Chloride 97 L (100-108) mmol/L Carbon Dioxide 27 (21-32) mmol/L Anion Gap 13.1 (5.0-14.0) mmol/L BUN 31 H (7-18) mg/dL Creatinine 1.3 (0.8-1.3) mg/dL Est Cr Clr Drug Dosing 44.24 mL/min Estimated GFR (MDRD) 52 L (>60) Glucose 300 H (74-106) mg/dL POC Glucose (74-106) MG/DL Calcium 8.4 L (8.5-10.1) mg/dL Ferritin 933 H (8-388) ng/ml Total Bilirubin 0.5 D (0.2-1.0) mg/dL AST 50 H (15-37) U/L ALT 41 (12-78) U/L Alkaline Phosphatase 48 (46-116) U/L Total Protein 7.5 (6.4-8.2) g/dL Albumin 3.1 L (3.4-5.0) g/dL Globulin 4.4 H (2.3-3.5) g/dL Albumin/Globulin Ratio 0.7 L (1.2-2.2) Urine Color (YELLOW) Urine Appearance (CLEAR) Urine pH (5.0-8.0) Ur Specific Mcrae (1.008-1.030) Urine Protein (NEGATIVE) mg/dL Urine Glucose (UA) (NEGATIVE) mg/dL Urine Ketones (NEGATIVE) mg/dL Urine Occult Blood (NEGATIVE) Urine Nitrite (NEGATIVE) Urine Bilirubin (NEGATIVE) Urine Urobilinogen (0.2-1.0) EU/dL Ur Leukocyte Esterase (NEGATIVE) Urine RBC (0-5) Urine WBC (0-5) Ur Epithelial Cells Amorphous Sediment Urine Bacteria Urine Mucus Med Orders - Current: Current Medications Acetaminophen (Tylenol Extra Strength) 1,000 mg PO TID [facility] Last Admin: 11/25/19 10:28 Dose: 1,000 mg Documented by: Amlodipine Besylate (Norvasc) 2.5 mg PO DAILY [facility] Last Admin: 11/25/19 10:28 Dose: 2.5 mg Documented by: Aspirin (Halfprin) 81 mg PO DAILY [facility] Last Admin: 11/25/19 10:28 Dose: 81 mg Documented by: Benzonatate (Tessalon Perles) 100 mg PO TID PRN PRN Reason: Cough Dexamethasone (Dexamethasone) 6 mg PO Q24H [facility] Last Admin: 11/24/19 21:06 Dose: 6 mg Documented by: Dextrose/Water (Dextrose 50% In Water) 50 ml IVPUSH ASDIRECTED PRN PRN Reason: Hypoglycemia Last Admin: 11/24/19 05:05 Dose: 50 ml Documented by: Glucagon (Glucagen) 1 mg IM ASDIRECTED PRN PRN Reason: Hypoglycemia Guaifenesin/Dextromethorphan (Robitussin Dm) 10 ml PO Q4H PRN PRN Reason: Cough Ibuprofen (Motrin) 600 mg PO Q6H PRN PRN Reason: Fever Last Admin: 11/23/19 23:20 Dose: 600 mg Documented by: Insulin Glargine (Lantus Solostar) 15 units SUBCUT BEDTIME [facility] Last Admin: 11/24/19 21:06 Dose: 15 units Documented by: Insulin Human Lispro (Humalog) 0 unit SUBCUT QIDACANDBED [facility]; Protocol Last Admin: 11/25/19 07:45 Dose: 8 units Documented by: Levothyroxine Sodium (Synthroid) 200 mcg PO DAILY [facility] Last Admin: 11/25/19 10:28 Dose: 200 mcg Documented by: Lorazepam (Ativan) 0.5 mg IVPUSH Q4H PRN PRN Reason: Nausea/Vomiting Magnesium Hydroxide (Milk Of Magnesia) 30 ml PO Q12H PRN PRN Reason: Constipation Melatonin (Melatonin) 9 mg PO BEDTIME [facility] Last Admin: 11/24/19 21:06 Dose: 9 mg Documented by: Olanzapine (Zyprexa) 5 mg PO Q6H PRN PRN Reason: Agitation Ondansetron HCl (Zofran) 4 mg IV Q6H PRN PRN Reason: Nausea/Vomiting Ondansetron HCl (Zofran Odt) 4 mg PO Q6H PRN PRN Reason: Nausea able to take PO Quetiapine Fumarate (Seroquel) 50 mg PO BEDTIME [facility] Last Admin: 11/24/19 21:07 Dose: 50 mg Documented by: Senna/Docusate Sodium (Senna Plus) 1 tab PO BID PRN PRN Reason: Constipation Tamsulosin HCl (Flomax) 0.4 mg PO BEDTIME [facility] Last Admin: 11/24/19 21:06 Dose: 0.4 mg Documented by: Discontinued Medications Dexamethasone (Dexamethasone) 6 mg PO Q24H [facility] Last Admin: 11/21/19 21:47 Dose: Not Given Documented by: Enoxaparin Sodium (Lovenox) 40 mg SUBCUT Q24H [facility] Last Admin: 11/21/19 21:47 Dose: Not Given Documented by: Enoxaparin Sodium (Lovenox) 40 mg SUBCUT Q24H [facility] Last Admin: 11/21/19 20:51 Dose: 40 mg Documented by: Haloperidol Lactate (Haldol) 2 mg IVPUSH Q4H PRN PRN Reason: Agitation Last Admin: 11/23/19 23:58 Dose: 2 mg Documented by: Sodium Chloride (Normal Saline) 1,000 mls @ 125 mls/hr IV ASDIRECTED [facility] Stop: 11/22/19 01:50 Last Admin: 11/21/19 19:55 Dose: 125 mls/hr Documented by: Sodium Chloride (Normal Saline) 500 mls @ 250 mls/hr IV .BOLUS ONE Stop: 11/24/19 05:47 Last Admin: 11/24/19 04:05 Dose: 250 mls/hr Documented by: Insulin Glargine (Lantus Solostar) 10 units SUBCUT BEDTIME [facility] Insulin Human Lispro (Humalog) 20 unit SUBCUT ONETIME ONE Stop: 11/22/19 21:06 Last Admin: 11/22/19 21:22 Dose: 20 units Documented by: Insulin Human Lispro (Humalog) 15 unit SUBCUT ONETIME ONE Stop: 11/22/19 23:31 Last Admin: 11/23/19 00:04 Dose: 15 units Documented by: Insulin Human Lispro (Humalog) 15 unit SUBCUT ONETIME ONE Stop: 11/23/19 17:01 Last Admin: 11/23/19 16:58 Dose: 15 units Documented by: Insulin Human Lispro (Humalog) 15 unit SUBCUT STAT STA Stop: 11/23/19 18:16 Last Admin: 11/23/19 18:28 Dose: 15 unit Documented by: Insulin Human Lispro (Humalog) 20 unit SUBCUT ONETIME ONE Stop: 11/23/19 20:28 Last Admin: 11/23/19 22:52 Dose: Not Given Documented by: Lidocaine HCl (Xylocaine 2% Jelly) Confirm Administered Dose 10 ml .ROUTE .STK- MED ONE Stop: 11/21/19 17:36 Last Admin: 11/21/19 18:57 Dose: Not Given Documented by: Lidocaine HCl (Xylocaine 2% Jelly) 10 ml MUCMEM ONETIME ONE Stop: 11/21/19 18:10 Last Admin: 11/21/19 18:56 Dose: 10 ml Documented by: Quetiapine Fumarate (Seroquel) 25 mg PO BEDTIME [facility] Last Admin: 11/23/19 20:46 Dose: 25 mg Documented by: - Exam Quality Assessment: No: Supplemental Oxygen General: Alert, Cooperative Lungs: Clear to Auscultation, Normal Respiratory Effort Cardiovascular: Regular Rate, Regular Rhythm, No Murmurs Neurological: No New Focal Deficit Psy/Mental Status: Alert, Normal Mood Sepsis Event Note - Evaluation Sepsis Screening Result: No Definite Risk - Focused Exam Vital Signs: Vital Signs Temp Pulse Resp BP BP Pulse Ox 11/25/19 10:28 105/51 L 11/25/19 10:24 99.2 F 84 18 105/51 L 90 L 11/25/19 07:43 97.7 F 72 14 154/70 H 96 11/25/19 03:00 97.3 F 68 18 157/73 H 93 L 11/25/19 00:35 98.3 F 66 16 136/56 L 93 L - Problem List Review Problem List Initiated/Reviewed/Updated: Yes - My Orders Last 24 Hours: My Active Orders 11/24/19 13:07 OLANZapine [ZyPREXA] 5 mg PO Q6H PRN 11/24/19 13:52 PT Evaluation and Treatment [CONS] Routine 11/24/19 21:00 QUEtiapine [SEROqueL] 50 mg PO BEDTIME 11/26/19 08:31 D-DIMER QUANTITATIVE [COAG] DAILY 11/27/19 08:31 D-DIMER QUANTITATIVE [COAG] DAILY 11/28/19 08:31 D-DIMER QUANTITATIVE [COAG] DAILY - Plan Plan:: ASSESSMENT AND PLAN - COVID19 infection-onset of symptoms occurred about November 15. Manifestations including weakness, borderline hypoxia, increased confusion and dysuria. Failed a trial at home and will be admitted for further management. Laboratory studies fairly unremarkable but he does have evidence for moderate dehydration on examination. Oxygenation is less than 92% on room air. Mild cough. Too weak to be safe for outpatient management. I do not think that the patient requires remdesivir at this time but will monitor the situation. As of 22 November, the patient has not yet required remdesivir or additional supportive management. he is now a full week into his illness. Awaiting placement -Dexamethasone 6 mg every 24 hours x5 days - should be done today 24 November -Isolation precautions -Gentle fluids x1 more liter then saline lock -Increase activity as tolerated -Symptomatic management of cough - Awaiting placement Alzheimer's dementia with behavioral disturbance-more agitated over the past few days. Not sleeping. Stable at this time. -Melatonin at bedtime (will continue) - Increased seroquel to 50 mg po qhs - Added zyprexa 5 mg po q 6 hours prn agitation - May give dose at bedtime if needed. Type 2 diabetes mellitus, [id number] acceptable earlier in the day. PO intake increasing. Patient had an episode of low sugars overnight. -He has resumed regular PO intake. - Resume [employer] lantus 15 units SQ daily -Check sugars 4 times a day and use medium dose sliding scale until appetite improves Maintenance issues - - DVT prophylaxis -enoxaparin 40 mg daily - GI prophylaxis-not indicated - Nutrition -consistent carbohydrates - Coughlin catheter -placed in the emergency room because of frequent urination leading to unsafe environment for the patient and for strict intake and output monitoring CODE STATUS -DO NOT RESUSCITATE but intubation is okay Disposition -Awaiting placement Primary care physician -Dr. Xavier Mendes M.D. 25 November 2019
[2019-11-25] MEDS: QUEtiapine 25 MG Tab PO SCH (21:01)
[2019-11-25] MEDS: Melatonin 3 MG Tab PO SCH (21:01)
[2019-11-25] MEDS: Dexamethasone 4 MG Tab PO SCH (21:02)
[2019-11-25] MEDS: Tamsulosin 0.4 MG Cap.ER PO SCH (21:02)
[2019-11-25] MEDS: Insulin Glargine,Human Rec. Analog 100 Units/ML 3 ML Pen SUBCUT SCH (21:08)
[2019-11-26] MEDS: Insulin Lispro 100 Unit/ML 3 ML KwikPen SUBCUT SCH ×4 (08:23→21:12)
[2019-11-26] MEDS: amLODIPine 5 MG Tab PO SCH (08:24)
[2019-11-26] MEDS: Aspirin 81 MG Tab.EC PO SCH (08:24)
[2019-11-26] MEDS: Acetaminophen 500 MG Tab PO SCH ×3 (08:24→20:21)
[2019-11-26] MEDS: Levothyroxine 100 MCG Tab PO SCH (08:24)
[2019-11-26] MEDS ORDERED: Furosemide 20 MG/2 ML VIAL IVPUSH ONE (10:00)
--- NOTE | 2019-11-26 10:26 | PCM.PN ---
- General Info Date of Service: 11/26/19 Admission Dx/Problem (Free Text): Patient has, over the past few hours, gone from RA to 4 L NC oxygen. Patient slept well overnight but is still quite sedated. Patient is a DNR/May Intubate. Discussed with team this AM. Patient not answering questions. Functional Status: Reports: New Symptoms - Review of Systems General: Reports: No Symptoms HEENT: Reports: No Symptoms Pulmonary: Reports: Shortness of Breath, Other (hypoxia) Cardiovascular: Reports: No Symptoms Gastrointestinal: Reports: No Symptoms - Patient Data Vitals - Most Recent: Last Vital Signs Temp 96.9 F 11/26/19 10:16 Pulse 57 L 11/26/19 10:16 Resp 18 11/26/19 10:16 BP 134/64 11/26/19 10:16 Pulse Ox 94 L 11/26/19 10:16 Weight - Most Recent: 166 lb I&O - Last 24 Hours: Intake & Output 11/25/19 11/26/19 11/26/19 22:59 06:59 14:59 Intake Total 600 300 Balance 600 300 Lab Results Last 24 Hours: Laboratory Results - last 24 hr 11/25/19 11/25/19 11/25/19 Range/Units 11:30 16:07 21:00 WBC (4.5-11.0) K/uL RBC (4.30-5.90) M/uL Hgb (12.0-15.0) g/dL Hct (40.0-54.0) % MCV (80-98) fL MCH (27-31) pg MCHC (32-36) % Plt Count (150-400) K/uL Neut % (Auto) (36-66) % Lymph % (Auto) (24-44) % Elbert % (Auto) (2-6) % Eos % (Auto) (2-4) % Baso % (Auto) (0-1) % D-Dimer, Quantitative (0.0-400.0) ng/mL Sodium (140-148) mmol/L Potassium (3.6-5.2) mmol/L Chloride (100-108) mmol/L Carbon Dioxide (21-32) mmol/L Anion Gap (5.0-14.0) mmol/L BUN (7-18) mg/dL Creatinine (0.8-1.3) mg/dL Est Cr Clr Drug Dosing mL/min Estimated GFR (MDRD) (>60) Glucose (74-106) mg/dL POC Glucose 318 H 264 H 304 H (74-106) MG/DL Calcium (8.5-10.1) mg/dL Ferritin (8-388) ng/ml Total Bilirubin (0.2-1.0) mg/dL AST (15-37) U/L ALT (12-78) U/L Alkaline Phosphatase (46-116) U/L Total Protein (6.4-8.2) g/dL Albumin (3.4-5.0) g/dL Globulin (2.3-3.5) g/dL Albumin/Globulin Ratio (1.2-2.2) 11/26/19 11/26/19 11/26/19 Range/Units 07:30 08:19 08:19 WBC 7.5 (4.5-11.0) K/uL RBC 5.15 (4.30-5.90) M/uL Hgb 13.9 (12.0-15.0) g/dL Hct 43.1 (40.0-54.0) % MCV 84 (80-98) fL MCH 27 (27-31) pg MCHC 32 (32-36) % Plt Count 99 L (150-400) K/uL Neut % (Auto) 69 H (36-66) % Lymph % (Auto) 11 L (24-44) % Elbert % (Auto) 20 H (2-6) % Eos % (Auto) 0 L (2-4) % Baso % (Auto) 0 (0-1) % D-Dimer, Quantitative 882 H (0.0-400.0) ng/mL Sodium (140-148) mmol/L Potassium (3.6-5.2) mmol/L Chloride (100-108) mmol/L Carbon Dioxide (21-32) mmol/L Anion Gap (5.0-14.0) mmol/L BUN (7-18) mg/dL Creatinine (0.8-1.3) mg/dL Est Cr Clr Drug Dosing mL/min Estimated GFR (MDRD) (>60) Glucose (74-106) mg/dL POC Glucose 306 H (74-106) MG/DL Calcium (8.5-10.1) mg/dL Ferritin (8-388) ng/ml Total Bilirubin (0.2-1.0) mg/dL AST (15-37) U/L ALT (12-78) U/L Alkaline Phosphatase (46-116) U/L Total Protein (6.4-8.2) g/dL Albumin (3.4-5.0) g/dL Globulin (2.3-3.5) g/dL Albumin/Globulin Ratio (1.2-2.2) 11/26/19 Range/Units 08:19 WBC (4.5-11.0) K/uL RBC (4.30-5.90) M/uL Hgb (12.0-15.0) g/dL Hct (40.0-54.0) % MCV (80-98) fL MCH (27-31) pg MCHC (32-36) % Plt Count (150-400) K/uL Neut % (Auto) (36-66) % Lymph % (Auto) (24-44) % Elbert % (Auto) (2-6) % Eos % (Auto) (2-4) % Baso % (Auto) (0-1) % D-Dimer, Quantitative (0.0-400.0) ng/mL Sodium 131 L (140-148) mmol/L Potassium 4.1 (3.6-5.2) mmol/L Chloride 96 L (100-108) mmol/L Carbon Dioxide 25 (21-32) mmol/L Anion Gap 14.1 H (5.0-14.0) mmol/L BUN 34 H (7-18) mg/dL Creatinine 1.3 (0.8-1.3) mg/dL Est Cr Clr Drug Dosing 44.24 mL/min Estimated GFR (MDRD) 52 L (>60) Glucose 322 H (74-106) mg/dL POC Glucose (74-106) MG/DL Calcium 8.3 L (8.5-10.1) mg/dL Ferritin 1201 H (8-388) ng/ml Total Bilirubin 0.5 (0.2-1.0) mg/dL AST 51 H (15-37) U/L ALT 44 (12-78) U/L Alkaline Phosphatase 54 (46-116) U/L Total Protein 7.6 (6.4-8.2) g/dL Albumin 3.1 L (3.4-5.0) g/dL Globulin 4.5 H (2.3-3.5) g/dL Albumin/Globulin Ratio 0.7 L (1.2-2.2) Med Orders - Current: Current Medications Acetaminophen (Tylenol Extra Strength) 1,000 mg PO TID COUNTS INCLUDE 234 BEDS AT THE [facility] Last Admin: 11/26/19 08:24 Dose: 1,000 mg Documented by: Amlodipine Besylate (Norvasc) 2.5 mg PO DAILY COUNTS INCLUDE 234 BEDS AT THE [facility] Last Admin: 11/26/19 08:24 Dose: 2.5 mg Documented by: Aspirin (Halfprin) 81 mg PO DAILY COUNTS INCLUDE 234 BEDS AT THE [facility] Last Admin: 11/26/19 08:24 Dose: 81 mg Documented by: Benzonatate (Tessalon Perles) 100 mg PO TID PRN PRN Reason: Cough Dexamethasone (Dexamethasone) 6 mg PO Q24H COUNTS INCLUDE 234 BEDS AT THE [facility] Last Admin: 11/25/19 21:02 Dose: 6 mg Documented by: Dextrose/Water (Dextrose 50% In Water) 50 ml IVPUSH ASDIRECTED PRN PRN Reason: Hypoglycemia Last Admin: 11/24/19 05:05 Dose: 50 ml Documented by: Glucagon (Glucagen) 1 mg IM ASDIRECTED PRN PRN Reason: Hypoglycemia Guaifenesin/Dextromethorphan (Robitussin Dm) 10 ml PO Q4H PRN PRN Reason: Cough Ibuprofen (Motrin) 600 mg PO Q6H PRN PRN Reason: Fever Last Admin: 11/23/19 23:20 Dose: 600 mg Documented by: Insulin Glargine (Lantus Solostar) 15 units SUBCUT BEDTIME COUNTS INCLUDE 234 BEDS AT THE [facility] Last Admin: 11/25/19 21:08 Dose: 15 units Documented by: Insulin Human Lispro (Humalog) 0 unit SUBCUT QIDACANDBED COUNTS INCLUDE 234 BEDS AT THE [facility]; Protocol Last Admin: 11/26/19 08:23 Dose: 8 units Documented by: Levothyroxine Sodium (Synthroid) 200 mcg PO DAILY COUNTS INCLUDE 234 BEDS AT THE [facility] Last Admin: 11/26/19 08:24 Dose: 200 mcg Documented by: Lorazepam (Ativan) 0.5 mg IVPUSH Q4H PRN PRN Reason: Nausea/Vomiting Magnesium Hydroxide (Milk Of Magnesia) 30 ml PO Q12H PRN PRN Reason: Constipation Melatonin (Melatonin) 9 mg PO BEDTIME COUNTS INCLUDE 234 BEDS AT THE [facility] Last Admin: 11/25/19 21:01 Dose: 9 mg Documented by: Olanzapine (Zyprexa) 5 mg PO Q6H PRN PRN Reason: Agitation Ondansetron HCl (Zofran) 4 mg IV Q6H PRN PRN Reason: Nausea/Vomiting Ondansetron HCl (Zofran Odt) 4 mg PO Q6H PRN PRN Reason: Nausea able to take PO Quetiapine Fumarate (Seroquel) 50 mg PO BEDTIME COUNTS INCLUDE 234 BEDS AT THE [facility] Last Admin: 11/25/19 21:01 Dose: 50 mg Documented by: Senna/Docusate Sodium (Senna Plus) 1 tab PO BID PRN PRN Reason: Constipation Tamsulosin HCl (Flomax) 0.4 mg PO BEDTIME COUNTS INCLUDE 234 BEDS AT THE [facility] Last Admin: 11/25/19 21:02 Dose: 0.4 mg Documented by: Discontinued Medications Dexamethasone (Dexamethasone) 6 mg PO Q24H COUNTS INCLUDE 234 BEDS AT THE [facility] Last Admin: 11/21/19 21:47 Dose: Not Given Documented by: Enoxaparin Sodium (Lovenox) 40 mg SUBCUT Q24H COUNTS INCLUDE 234 BEDS AT THE [facility] Last Admin: 11/21/19 21:47 Dose: Not Given Documented by: Enoxaparin Sodium (Lovenox) 40 mg SUBCUT Q24H COUNTS INCLUDE 234 BEDS AT THE [facility] Last Admin: 11/21/19 20:51 Dose: 40 mg Documented by: Furosemide (Lasix) 20 mg IVPUSH ONETIME ONE Stop: 11/26/19 10:01 Last Admin: 11/26/19 10:16 Dose: 20 mg Documented by: Haloperidol Lactate (Haldol) 2 mg IVPUSH Q4H PRN PRN Reason: Agitation Last Admin: 11/23/19 23:58 Dose: 2 mg Documented by: Sodium Chloride (Normal Saline) 1,000 mls @ 125 mls/hr IV ASDIRECTED EMILIANA Stop: 11/22/19 01:50 Last Admin: 11/21/19 19:55 Dose: 125 mls/hr Documented by: Sodium Chloride (Normal Saline) 500 mls @ 250 mls/hr IV .BOLUS ONE Stop: 11/24/19 05:47 Last Admin: 11/24/19 04:05 Dose: 250 mls/hr Documented by: Insulin Glargine (Lantus Solostar) 10 units SUBCUT BEDTIME COUNTS INCLUDE 234 BEDS AT THE [facility] Insulin Human Lispro (Humalog) 20 unit SUBCUT ONETIME ONE Stop: 11/22/19 21:06 Last Admin: 11/22/19 21:22 Dose: 20 units Documented by: Insulin Human Lispro (Humalog) 15 unit SUBCUT ONETIME ONE Stop: 11/22/19 23:31 Last Admin: 11/23/19 00:04 Dose: 15 units Documented by: Insulin Human Lispro (Humalog) 15 unit SUBCUT ONETIME ONE Stop: 11/23/19 17:01 Last Admin: 11/23/19 16:58 Dose: 15 units Documented by: Insulin Human Lispro (Humalog) 15 unit SUBCUT STAT STA Stop: 11/23/19 18:16 Last Admin: 11/23/19 18:28 Dose: 15 unit Documented by: Insulin Human Lispro (Humalog) 20 unit SUBCUT ONETIME ONE Stop: 11/23/19 20:28 Last Admin: 11/23/19 22:52 Dose: Not Given Documented by: Lidocaine HCl (Xylocaine 2% Jelly) Confirm Administered Dose 10 ml .ROUTE .STK- MED ONE Stop: 11/21/19 17:36 Last Admin: 11/21/19 18:57 Dose: Not Given Documented by: Lidocaine HCl (Xylocaine 2% Jelly) 10 ml MUCMEM ONETIME ONE Stop: 11/21/19 18:10 Last Admin: 11/21/19 18:56 Dose: 10 ml Documented by: Quetiapine Fumarate (Seroquel) 25 mg PO BEDTIME COUNTS INCLUDE 234 BEDS AT THE [facility] Last Admin: 11/23/19 20:46 Dose: 25 mg Documented by: - Exam Quality Assessment: Supplemental Oxygen, DVT Prophylaxis General: No Acute Distress, Sedated Lungs: Crackles (bilateral low shahid) Cardiovascular: Regular Rate, Regular Rhythm GI/Abdominal Exam: Normal Bowel Sounds Sepsis Event Note - Evaluation Sepsis Screening Result: No Definite Risk - Focused Exam Vital Signs: Vital Signs Temp Pulse Resp BP BP Pulse Ox 11/26/19 10:16 96.9 F 57 L 18 134/64 94 L 11/26/19 08:39 96.7 F L 71 18 106/47 L 89 L 11/26/19 08:24 106/47 L 11/26/19 03:00 97.7 F 66 18 139/51 L 91 L 11/25/19 22:51 97.9 F 65 18 152/69 H 92 L - Problem List Review Problem List Initiated/Reviewed/Updated: Yes - My Orders Last 24 Hours: My Active Orders 11/26/19 11:00 Remdesivir (Eua) [Remdesivir (EUA)] 100 mg Sodium Chloride 0.9% [Normal Saline] 100 ml IV Q24H 11/27/19 08:31 D-DIMER QUANTITATIVE [COAG] DAILY 11/28/19 08:31 D-DIMER QUANTITATIVE [COAG] DAILY - Plan Plan:: ASSESSMENT AND PLAN - COVID19 infection-onset of symptoms occurred about November 15. Manifestations including weakness, borderline hypoxia, increased confusion and dysuria. Failed a trial at home and will be admitted for further management. Laboratory studies fairly unremarkable but he does have evidence for moderate dehydration on examination. Oxygenation is less than 92% on room air. Mild cough. Too weak to be safe for outpatient management. I do not think that the patient requires remdesivir at this time but will monitor the situation. As of 22 November, the patient has not yet required remdesivir or additional supportive management. he is now a full week into his illness. Awaiting pl acement. Update for 26 November 2019 Patient noted to be up 1500 mL this morning. Has bilateral crackles. WBC is up, Lymphocyte count is down, Ferritin, D-dimer both climbing. I am concerned that the patient's overall picture does suggest an acute worsening of COVID 19 at this time. While I can not exclude, completely, fluid overload - I would not anticipate the other laboratory changes correlating to pulmonary edema and fluid overload. - Dexamethasone 6 mg every 24 hours to continue - Start Remdesivir today - Low threshhold for ICU transfer - [facility] - Isolation precautions - Hold IVF - Increase activity as tolerated - Symptomatic management of cough Alzheimer's dementia with behavioral disturbance-more agitated over the past few days. Not sleeping. Stable at this time. -Melatonin at bedtime (will continue) - Increased seroquel to 50 mg po qhs - Added zyprexa 5 mg po q 6 hours prn agitation - May give dose at bedtime if needed. Type 2 diabetes mellitus, oyzcehc-[id number]-yktro acceptable earlier in the day. PO intake increasing. Patient had an episode of low sugars overnight. -He has resumed regular PO intake. 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 Xavier Mendes M.D. 26 November 2019
[2019-11-26] MEDS: QUEtiapine 25 MG Tab PO SCH (20:21)
[2019-11-26] MEDS: Tamsulosin 0.4 MG Cap.ER PO SCH (20:21)
[2019-11-26] MEDS: Dexamethasone 4 MG Tab PO SCH (20:21)
[2019-11-26] MEDS: Melatonin 3 MG Tab PO SCH (20:21)
[2019-11-26] MEDS: Insulin Glargine,Human Rec. Analog 100 Units/ML 3 ML Pen SUBCUT SCH (21:13)
[2019-11-27] MEDS: Insulin Lispro 100 Unit/ML 3 ML KwikPen SUBCUT SCH (09:01)
[2019-11-27] MEDS: Levothyroxine 100 MCG Tab PO SCH (09:03)
[2019-11-27] MEDS: Acetaminophen 500 MG Tab PO SCH (09:03)
[2019-11-27] MEDS: amLODIPine 5 MG Tab PO SCH (09:03)
[2019-11-27] MEDS: Aspirin 81 MG Tab.EC PO SCH (09:03)
[2019-11-27] MEDS ORDERED: Furosemide 20 MG/2 ML VIAL IVPUSH ONE ×2 (09:30→10:15)
[2019-11-27] MEDS ORDERED: Furosemide 20 MG/2 ML VIAL ONE (09:30)
[2019-11-27] MEDS ORDERED: Enoxaparin 40 MG/0.4 ML Syringe SUBCUT SCH (10:00)
--- NOTE | 2019-11-27 10:15 | PCM.DCSUM1 ---
Discharge Summary - Hospital Course HPI Initial Comments: Mr. Russell Leyva is an 84 yo M admitted to [facility] about 7 days ago for confusion in the setting of an UTI and COVID 19 infection. The patient was given rocephin to good effect. He has been well with respect to the COVID 19 diagnosis until 48 hours ago. At that time the patient began to have increasing oxygen needs and declining oxygenation levels. The patient was, at that time, found to be up about 1500 mL and was given 20 mg IV lasix x 1 with good output of urine and improvement with lessening oxygenation needs. The patient had remained stable throughout the remainder of the 25 of November. On the Am of 26 November the patient declined acutely rapidly deteriorating requiring escalating levels of oxygen and more advanced delivery systems. He has increased from 3L to 6 L NC to 10 L facemask. The case was discussed with [facility] and they will accept the patient into their ICU once a previous patient has been cleared out of it. The patient was given 40 mg IV lasix, 80 mg solumedrol, remdesivir dose and 40 mg SQ lovenox prior to transportation. The patient is a DNR MAY INTUBATE. Diagnosis: Stroke: No - Discharge Data Discharge Date: 11/27/19 Discharge Disposition: DC/Tfer to Acute Hospital 02 Condition: Serious - Referral to Home Health Primary Care Physician: Kirt Park MD - Patient Summary/Data Consults: Consultations 11/24/19 13:52 PT Evaluation and Treatment [CONS] Routine Please Evaluate and Treat. PT Reason for Consult: Strengthening Pending Discharge: Yes Discharge Disposition: Home w Home Health Special Instructions: or snf if available covid positive This query below is only for informational purposes and is not editable. Admission Diagnosis/Problem: Weakness - Patient Instructions Diet: Usual Diet as Tolerated Fluid Restriction: 2000 mL Driving: Do Not Drive Showering/Bathing: May Shower - Discharge Plan *PRESCRIPTION DRUG MONITORING PROGRAM REVIEWED*: Not Applicable *COPY OF PRESCRIPTION DRUG MONITORING REPORT IN PATIENT DENISE: Not Applicable Home Medications: Home Meds Levothyroxine Sodium 200 mcg PO ACBREAKFAST 01/08/13 [History] Aspirin [Silver Chewable Aspirin] 81 mg PO DAILY 05/31/14 [History] Insulin Aspart [NovoLOG] 6 unit SQ ASDIRECTED 05/31/14 [History] Insulin Glarg,Human.Rec.Analog [Lantus Solostar] 15 units SQ QAM 05/31/14 [History] Acetaminophen [Tylenol] 2 tab PO Q4H PRN 10/13/14 [History] Cholecalciferol (Vitamin D3) [Vitamin D3] 2,000 mg PO DAILY 10/13/14 [History] Simvastatin [Zocor] 20 mg PO DAILY 10/13/14 [History] Sodium Chloride 2,000 mg PO BID 10/13/14 [History] amLODIPine [Norvasc] 2.5 mg PO DAILY 10/13/14 [History] Tamsulosin [Tamsulosin 24 Hr] 0.4 mg PO BEDTIME #30 cap.er 11/21/19 [Rx] Oxygen Therapy Mode: Non-Rebreather Mask Oxygen Flow Rate (L/min): 10 Forms: ED Department Discharge Referrals: Kirt Park MD [Primary Care Provider] - - Discharge Summary/Plan Comment DC Time >30 min.: Yes - Patient Data Vitals - Most Recent: Last Vital Signs Temp 97.1 F 11/27/19 09:06 Pulse 73 11/27/19 09:06 Resp 20 11/27/19 09:41 BP 131/55 L 11/27/19 09:06 Pulse Ox 90 L 11/27/19 09:41 Weight - Most Recent: 166 lb I&O - Last 24 hours: Intake & Output 11/26/19 11/27/19 11/27/19 22:59 06:59 14:59 Intake Total 300 300 Output Total 200 150 Balance 100 -150 300 Lab Results - Last 24 hrs: Laboratory Results - last 24 hr 11/26/19 11/26/19 11/26/19 Range/Units 10:30 16:30 21:05 D-Dimer, Quantitative (0.0-400.0) ng/mL POC Glucose 377 H 290 H 232 H (74-106) MG/DL 11/27/19 11/27/19 Range/Units 07:30 07:35 D-Dimer, Quantitative 775 H (0.0-400.0) ng/mL POC Glucose 210 H (74-106) MG/DL Med Orders - Current: Current Medications Acetaminophen (Tylenol Extra Strength) 1,000 mg PO TID EMILIANA Last Admin: 11/27/19 09:03 Dose: 1,000 mg Documented by: Amlodipine Besylate (Norvasc) 2.5 mg PO DAILY [facility] Last Admin: 11/27/19 09:03 Dose: 2.5 mg Documented by: Aspirin (Halfprin) 81 mg PO DAILY [facility] Last Admin: 11/27/19 09:03 Dose: 81 mg Documented by: Benzonatate (Tessalon Perles) 100 mg PO TID PRN PRN Reason: Cough Dexamethasone (Dexamethasone) 6 mg PO Q24H [facility] Last Admin: 11/26/19 20:21 Dose: 6 mg Documented by: Dextrose/Water (Dextrose 50% In Water) 50 ml IVPUSH ASDIRECTED PRN PRN Reason: Hypoglycemia Last Admin: 11/24/19 05:05 Dose: 50 ml Documented by: Enoxaparin Sodium (Lovenox) 40 mg SUBCUT Q12H EMILIANA Furosemide (Lasix) 20 mg IVPUSH ONETIME ONE Stop: 11/27/19 10:16 Glucagon (Glucagen) 1 mg IM ASDIRECTED PRN PRN Reason: Hypoglycemia Guaifenesin/Dextromethorphan (Robitussin Dm) 10 ml PO Q4H PRN PRN Reason: Cough Remdesivir 100 mg/ Sodium (Chloride) 100 mls @ 100 mls/hr IV Q24H EMILIANA Stop: 11/30/19 11:59 Methylprednisolone Sodium Succinate 80 mg/ Dextrose/Water 101.28 mls @ 200 mls/hr IV ONETIME ONE Stop: 11/27/19 11:00 Ibuprofen (Motrin) 600 mg PO Q6H PRN PRN Reason: Fever Last Admin: 11/23/19 23:20 Dose: 600 mg Documented by: Insulin Glargine (Lantus Solostar) 15 units SUBCUT BEDTIME [facility] Last Admin: 11/26/19 21:13 Dose: 15 units Documented by: Insulin Human Lispro (Humalog) 0 unit SUBCUT QIDACANDBED [facility]; Protocol Last Admin: 11/27/19 09:01 Dose: 4 units Documented by: Levothyroxine Sodium (Synthroid) 200 mcg PO DAILY [facility] Last Admin: 11/27/19 09:03 Dose: 200 mcg Documented by: Lorazepam (Ativan) 0.5 mg IVPUSH Q4H PRN PRN Reason: Nausea/Vomiting Magnesium Hydroxide (Milk Of Magnesia) 30 ml PO Q12H PRN PRN Reason: Constipation Melatonin (Melatonin) 9 mg PO BEDTIME [facility] Last Admin: 11/26/19 20:21 Dose: 9 mg Documented by: Olanzapine (Zyprexa) 5 mg PO Q6H PRN PRN Reason: Agitation Last Admin: 11/26/19 15:49 Dose: 5 mg Documented by: Ondansetron HCl (Zofran) 4 mg IV Q6H PRN PRN Reason: Nausea/Vomiting Ondansetron HCl (Zofran Odt) 4 mg PO Q6H PRN PRN Reason: Nausea able to take PO Quetiapine Fumarate (Seroquel) 50 mg PO BEDTIME EMILIANA Last Admin: 11/26/19 20:21 Dose: 50 mg Documented by: Senna/Docusate Sodium (Senna Plus) 1 tab PO BID PRN PRN Reason: Constipation Tamsulosin HCl (Flomax) 0.4 mg PO BEDTIME [facility] Last Admin: 11/26/19 20:21 Dose: 0.4 mg Documented by: Discontinued Medications Dexamethasone (Dexamethasone) 6 mg PO Q24H [facility] Last Admin: 11/21/19 21:47 Dose: Not Given Documented by: Enoxaparin Sodium (Lovenox) 40 mg SUBCUT Q24H [facility] Last Admin: 11/21/19 21:47 Dose: Not Given Documented by: Enoxaparin Sodium (Lovenox) 40 mg SUBCUT Q24H [facility] Last Admin: 11/21/19 20:51 Dose: 40 mg Documented by: Furosemide (Lasix) 20 mg IVPUSH ONETIME ONE Stop: 11/26/19 10:01 Last Admin: 11/26/19 10:16 Dose: 20 mg Documented by: Furosemide (Lasix) 20 mg IVPUSH ONETIME ONE Stop: 11/27/19 09:31 Last Admin: 11/27/19 09:35 Dose: 20 mg Documented by: Furosemide (Lasix) Confirm Administered Dose 20 mg .ROUTE .STK-MED ONE Stop: 11/27/19 09:31 Last Admin: 11/27/19 09:37 Dose: Not Given Documented by: Haloperidol Lactate (Haldol) 2 mg IVPUSH Q4H PRN PRN Reason: Agitation Last Admin: 11/23/19 23:58 Dose: 2 mg Documented by: Sodium Chloride (Normal Saline) 1,000 mls @ 125 mls/hr IV ASDIRECTED EMILIANA Stop: 11/22/19 01:50 Last Admin: 11/21/19 19:55 Dose: 125 mls/hr Documented by: Sodium Chloride (Normal Saline) 500 mls @ 250 mls/hr IV .BOLUS ONE Stop: 11/24/19 05:47 Last Admin: 11/24/19 04:05 Dose: 250 mls/hr Documented by: Remdesivir 200 mg/ Sodium (Chloride) 250 mls @ 250 mls/hr IV ONETIME ONE Stop: 11/26/19 11:59 Last Admin: 11/26/19 10:58 Dose: 250 mls/hr Documented by: Insulin Glargine (Lantus Solostar) 10 units SUBCUT BEDTIME EMILIANA Insulin Human Lispro (Humalog) 20 unit SUBCUT ONETIME ONE Stop: 11/22/19 21:06 Last Admin: 11/22/19 21:22 Dose: 20 units Documented by: Insulin Human Lispro (Humalog) 15 unit SUBCUT ONETIME ONE Stop: 11/22/19 23:31 Last Admin: 11/23/19 00:04 Dose: 15 units Documented by: Insulin Human Lispro (Humalog) 15 unit SUBCUT ONETIME ONE Stop: 11/23/19 17:01 Last Admin: 11/23/19 16:58 Dose: 15 units Documented by: Insulin Human Lispro (Humalog) 15 unit SUBCUT STAT STA Stop: 11/23/19 18:16 Last Admin: 11/23/19 18:28 Dose: 15 unit Documented by: Insulin Human Lispro (Humalog) 20 unit SUBCUT ONETIME ONE Stop: 11/23/19 20:28 Last Admin: 11/23/19 22:52 Dose: Not Given Documented by: Lidocaine HCl (Xylocaine 2% Jelly) Confirm Administered Dose 10 ml .ROUTE .STK- MED ONE Stop: 11/21/19 17:36 Last Admin: 11/21/19 18:57 Dose: Not Given Documented by: Lidocaine HCl (Xylocaine 2% Jelly) 10 ml MUCMEM ONETIME ONE Stop: 11/21/19 18:10 Last Admin: 11/21/19 18:56 Dose: 10 ml Documented by: Quetiapine Fumarate (Seroquel) 25 mg PO BEDTIME EMILIANA Last Admin: 11/23/19 20:46 Dose: 25 mg Documented by: - Exam Quality Assessment: Reports: Supplemental Oxygen, DVT Prophylaxis. Denies: Central Line/PICC General: Reports: Sedated Lungs: Reports: Crackles, Rales, Rhonchi, Wheezing (all shahid) Cardiovascular: Reports: Regular Rate, Regular Rhythm, No Murmurs GI/Abdominal Exam: Normal Bowel Sounds, Soft
[2019-11-27] MEDS ORDERED: methylPREDNISolone Sod Succ 80 MG in Dextrose 5% in Water 100 ML IV ONE ×2 (10:30)
[2019-11-27] MEDS ORDERED: REMDESIVIR (EUA) 100 MG in Sodium Chloride 0.9% 100 ML IV SCH (11:00)
[2019-11-27 11:14] VITALS: BP 101/44; PULSE 63
== END 2019-11-27 12:31 | DRG 178 ==
LOC: JP.ED 16:34 → JP.MS 17:32
PROVIDERS: ADMIT Internal Medicine; ATTEND Family Medicine
PROC: XW033E5 Introduction of Remdesivir Anti-infective into Peripheral Vein, Percutaneous Approach, New Technology Group 5 (ICD-10-PCS; principal; 2019-11-26)
DX: U07.1 COVID-19 (principal); R53.1 Weakness; W19.XXXA Unspecified fall, initial encounter; F02.81 Dementia in other diseases classified elsewhere, unspecified severity, with behavioral disturbance; H54.7 Unspecified visual loss; N30.00 Acute cystitis without hematuria; Z98.2 Presence of cerebrospinal fluid drainage device; G30.9 Alzheimer's disease, unspecified; F03.90 Unspecified dementia, unspecified severity, without behavioral disturbance, psychotic disturbance, mood disturbance, and anxiety; E11.9 Type 2 diabetes mellitus without complications; Z66 Do not resuscitate; E78.00 Pure hypercholesterolemia, unspecified; K21.9 Gastro-esophageal reflux disease without esophagitis; Z79.82 Long term (current) use of aspirin; Z79.4 Long term (current) use of insulin; Z79.890 Hormone replacement therapy; Z79.899 Other long term (current) drug therapy; Z90.49 Acquired absence of other specified parts of digestive tract
CPT/HCPCS: 36415; 51702; 80048; 80053; 81001; 82728; 82962; 83615; 84145; 85025; 85027; 85379; 86140; 94762; 97110-GP; 97162-GP; 97530-GP; 99285; A9270-GY; J1630; J1650; J1815; J1815-GY; J1940; J2930; J7030; J7040; J7050; J7060; J8540